=== PATIENT | female | born 1980 | race Caucasian/White ===

== ENCOUNTER 2022-08-02 03:35 | Emergency (ER) | payer OTHER, SELFPAY ==
--- NOTE | ~2022-08-02 | XR_ITS ---
EXAMINATION: XR chest 1V portable DATE: 08/02/2022 04:38 INDICATION: Chest pain and tightness. Cough. TECHNIQUE: frontal view of the chest was obtained. COMPARISON: None FINDINGS: A few calcified nodules in the bilateral lower lung zones. There are also symmetric nipple shadows pr ojecting over the bilateral anterior sixth ribs. Linear discoid atelectasis/scarring at the left lung base. No pulmonary edema, pleural effusion or pneumothorax. The cardiomediastinal silhouette is norm al. Visualized bones and soft tissues are unremarkable. IMPRESSION: 1. No acute cardiopulmonary disease. Reviewed, dictated and finalized at location A. ESSOR OF LITERATURE
--- NOTE | ~2022-08-02 | CT_ITS ---
EXAMINATION: CT abdomen pelvis wo con DATE: 08/02/2022 05:42 INDICATION: Right flank pain. Gross hematuria. Difficult painful urination. TECHNIQUE: Computed tomography (CT) of the abdomen and pelvis was performed without intravenous contr ast. Automated exposure control and iterative reconstruction technique were employed. The dose-length product was 170.77 mGy-cm. COMPARISON: None FINDINGS: A few calcified pulmonary nodules and a few splenic calcifications consistent with old granulomatous disease. Mild discoid atelectasis in the bilateral lower lobes. Heart size is normal. No pericardial or pleural effusion. Liver, gallbladder, pancreas and bilateral adrenal glands are normal. Left kidne y and ureter are normal with no left-sided urolithiasis. 2 mm nonobstructing stone at a lower pole ca lyx of the right kidney. No right-sided hydronephrosis. The right ureter is also not dilated and diff icult to definitively distinguished. There are 3 small calcifications in the right hemipelvis, the la rgest measuring 2.5 mm which are near but not directly along the expected course of the right ureter and would favor phleboliths over distal ureteral stones. Bladder is normal. The uterus is not identif ied and has likely been surgically resected. Bowels including the appendix are normal. No free intrap eritoneal gas or fluid. No pathologically enlarged abdominal or pelvic lymphadenopathy. Severe spondy losis at L5-S1. Otherwise mild spondylosis in the more cephalad lumbar and lower thoracic spine. IMPRESSION: 1. 2 mm right renal stone with 3 additional small calcification at the right hemipelvis which based o n position or more likely to represent phleboliths in distal ureteral stones or the right ureter is u nable to be definitively identified. No hydronephrosis. Reviewed, dictated and finalized at location A. ENT RELATIONS LIAISON IMPRESSION: 1. 2 mm right renal stone with 3 additional small calcification at the right he mipelvis which based on position or more likely to represent phleboliths in dis mallory ureteral stones or the right ureter is unable to be definitively identified . No hydronephrosis.
[2022-08-02 03:35] VITALS: BP 117/89; PULSE 110; RESP 24; TEMP 37; O2SAT 98
--- NOTE | 2022-08-02 03:43 | ED.BACK ---
HPI - Back Pain/Injury General Chief Complaint: Back Pain/Injury Stated Complaint: chest pain, kidney pain Time Seen by Provider: 08/02/22 03:42 Source: patient Mode of arrival: ambulatory History of Present Illness HPI Narrative: 41-year-old female status post hysterectomy presents to the ER with -- right flank pain radiating to the back. -- anterior chest pain without any radiation. -- She had an upper respiratory infection 5 days ago which resolved around 2 days ago. -- Nausea with multiple episodes of vomiting. the patient has been hyperventilating and rocking back and forth with pain MD elicited complaint: back pain Onset (ago): day(s) ( Chest pain and flank pain started yesterday) Timing: constant Similar Symptoms Previously: No Quality: aching Location: right flank Exacerbating factors: none Relieving factors: none Related Data Home Medications Medication Instructions Recorded Confirmed fluoxetine 40 mg capsule 40 mg PO DAILY 08/02/22 08/02/22 gabapentin 600 mg tablet 600 mg PO BID 08/02/22 08/02/22 Allergies Allergy/AdvReac Type Severity Reaction Status Date / Time No Known Allergies Allergy Verified 08/02/22 03:39 Review of Systems Review of Systems: All systems reviewed & are unremarkable except as noted in HPI and below Constitutional: Constitutional: Reports as per HPI and Reports no additional constitutional complaints Eyes: Eyes: Reports as per HPI and Reports no additional eye complaints ENT: Reports system reviewed and no additional complaints, except as documented and Reports as per HPI Cardiovascular: Cardiovascular: Reports as per HPI, Reports no additional cardiovascular complaints and Reports chest pain Respiratory: Respiratory: Reports as per HPI and Reports no additional respiratory complaints Gastrointestinal: Gastrointestinal: Reports as per HPI and Reports no additional gastrointestinal complaints Genitourinary: Genitourinary: Reports no additional female genitourinary complaints, Reports as per HPI and Reports flank pain Musculoskeletal: Musculoskeletal: Reports no additional musculoskeletal complaints, Reports as per HPI and Reports back pain Integumentary/Breasts: Skin/Breast: Reports system reviewed and no additional complaints, except as docu and Reports as per HPI Neurologic: Reports system reviewed and no additional complaints, except as documented and Reports as per HPI Psychiatric: Psychiatric: Reports no additional psychiatric complaints and Reports as per HPI Endocrine: Endocrine: Reports no additional endocrine complaints and Reports as per HPI Hematologic/Lymphatic: Hematologic/Lymphatic: Reports no additional hematologic/lymphatic complaints and Reports as per HPI Allergic/Immunologic: Allergic/Immunologic: Reports no additional allergic/immunologic complaints and Reports as per HPI [facility] Surgical History Surgical History (Updated 08/02/22 @ 03:57 by Farhad Marmolejo MD) H/O: hysterectomy Exam Const: General: ill appearing Nutritional Appearance: thin Limitations: no limitations HENMT: Head: normal to inspection Ears: external ears normal Face/Nose/Sinus: Normal external nose present Face and sinus: normal facial exam Mouth: Yes Normal oral and palatal mucosa present Throat: posterior oropharynx normal Eyes: Conjunctivae: conjunctivae normal Pupils: Equal, round and reactive pupils present Direct Ophthalmoscopy: no photophobia Neck: Neck: normal visual inspection, no lymphadenopathy and no meningeal signs Chest: Chest palpation & inspection: normal inspection of the chest Resp: Effort & Inspection: normal respiratory effort Auscultation: clear to auscultation bilaterally Cardio: Rate: regular rate Rhythm: regular rhythm GI: GI Palp: Yes Soft to palpation Auscultation: normal bowel sounds Other: right flank tenderness without any rigidity /rebound : General: Yes CVA tenderness Back/Spine/Pelvis: Back: CVA tenderness Skin:
--- NOTE | 2022-08-02 03:51 | ECG_ITS ---
Measurements Intervals [place] Rate: 96 P: 70 TN: 133 QRS: 82 QRSD: 80 T: 64 QT: 317 QTc: 401 Interpretive Statements SINUS RHYTHM BASELINE ARTIFACT- I, II, III NORMAL ECG NO PREVIOUS ECG AVAILABLE FOR COMPARISON Electronically Signed On 08-02-2022 6:55:00 [employer] SELECT[employer] by Linus Waite D.O.
[2022-08-02 04:06] LABS: Basophils Absolute Auto 0.02 K/mm3 (0.00-0.10); Basophils Percent Auto 0.1 % (0.0-1.0); Eosinophils Absolute Auto 0.01 K/mm3 (0.02-0.50); Eosinophils Percent Auto 0.1 % (1.0-6.0); Hemoglobin 13.8 g/dL (12.0-15.0); Immature Granulocyte Absolute 0.05 K/mm3 (0.00-0.00); Immature Granulocyte Percent A 0.4 % (0.0-0.0); Lymphocytes Absolute Auto 0.92 K/mm3 (1.10-4.50); Lymphocytes Percent Auto 6.5 % (18.0-42.0); Mean Corpuscular HGB Conc 33.7 g/dL (32.0-36.0); Mean Corpuscular Hemoglobin 30.7 pg (27.0-31.0); Mean Corpuscular Volume 91.1 fL (78.0-102.0); Mean Platelet Volume 9.7 fl (9.2-11.8); Monocytes Absolute Auto 0.79 K/mm3 (0.10-0.90); Monocytes Percent Auto 5.6 % (2.0-11.0); Neutrophils Absolute Auto 12.4 K/mm3 (1.7-7.2); Neutrophils Percent Auto 87.3 % (50.0-70.0); Platelet Count Result 200 K/mm3 (150-420); Red Cell Distribution Width 11.8 % (11.6-14.4); White Blood Count 14.2 K/mm3 (4.8-10.8)
[2022-08-02] MEDS: MORPHINE SULFATE (*CRX) 2 MG/ML INJ IV PUSH (04:16)
[2022-08-02] MEDS: ONDANSETRON INJ 4 MG/2 ML VIAL IV PUSH (04:16)
[2022-08-02] MEDS: LACTATED RINGERS 1,000 ML 999 ML IV CONT ×2 (04:17→05:20)
[2022-08-02 04:18] LABS: Appearance Urine Clear (Clear); Bilirubin Urine Negative (Negative); Blood Urine 1+ (Negative); Glucose Urine UA Negative (Negative); Ketones Urine 1+ (Negative); Leukocyte Esterase Ur 3+ (Negative); Nitrate Urine Positive (Negative); Protein Urine 2+ (Negative)
[2022-08-02 04:20] LABS: D Dimer 0.37 mg/L (0.19-0.50); INR 0.9; Prothrombin Time 10.4 Seconds (9.50-12.10)
[2022-08-02 04:24] LABS: Add Urine Microscopic? YES; Color Urine Light Yellow (Yellow)
[2022-08-02 04:24] LABS: Alanine Aminotransferase 11 U/L (14-59); Albumin Level 3.4 g/dL (3.4-5.0); Alkaline Phosphatase 86 U/L (46-116); Anion Gap 11 mmol/L (8-16); Aspartate Amino Transferase < 10 U/L (15-37); Bilirubin,Total 0.4 mg/dL (0.00-1.00); Blood Urea Nitrogen 10 mg/dL (7-18); Calcium 8.7 mg/dL (8.5-10.1); Carbon Dioxide 23 mmol/L (21-32); Chloride 101 mmol/L (98-108); Estimated Glomerular Filt Rate > 60; Glucose 187 mg/dL (70-99); Lipase 27 U/L (73-393); Osmolality Calculated 284 mOsm/kg (285-295); Potassium 3.5 mmol/L (3.5-5.1); Sodium 135 mmol/L (136-145); Total Protein 7.1 g/dL (6.4-8.2)
[2022-08-02 04:25] LABS: Bacteria Urine 3+ /hpf; Squamous Epithelial Cell Urine Few /hpf (Few); WBC Urine >75 /hpf (0-3)
[2022-08-02 04:25] LABS: Troponin I < 4.0 ng/L (0.00-60.4)
[2022-08-02 04:26] LABS: Lactic Acid Reflex 1.7 mmol/L (0.4-2.0)
[2022-08-02 04:53] LABS: SARS-CoV-2 RNA PCR Positive (Negative)
[2022-08-02] MEDS: HYDROmorphone HCL INJ (*CRX) 2 MG/ML VIAL 0.5 MG IV PUSH (05:19)
[2022-08-02 05:35] VITALS: BP 123/83; PULSE 90; RESP 18; O2SAT 98
[2022-08-02] MEDS: levoFLOXacin 500 MG/D5W 100 ML 500 MG/100 ML BAG 100 MG IVPB (05:42)
--- NOTE | 2022-08-02 06:15 | PC.NURSE ---
Pt is sleeping and resting comfortably, IVF infusing per order, awaiting CT results. Call العلي at pt side.
[2022-08-02 07:09] VITALS: BP 128/74; PULSE 95; RESP 18; TEMP 37.2; O2SAT 98
== END 2022-08-02 07:15 | disposition home or self-care (01) ==
PROVIDERS: Emergency Provider Internal Medicine Critical Care Medicine; PCP Family Medicine
DX: N39.0 Urinary tract infection, site not specified (principal); U07.1 COVID-19; R10.9 Unspecified abdominal pain; R73.9 Hyperglycemia, unspecified; R07.9 Chest pain, unspecified
CPT/HCPCS: 36415; 71045; 74176; 80053; 81001; 83605; 83690; 84484; 85025; 85380; 85610; 93005; 96361; 96365; 96375; 99284; J1170; J1956; J2270; J2405; J7120; U0003; U0005

== ENCOUNTER 2022-08-04 17:41 | Observation (INO) | payer OTHER, SELFPAY ==
--- NOTE | ~2022-08-04 | CT_ITS ---
EXAMINATION: CT abdomen pelvis w con DATE: 08/04/2022 20:19 INDICATION: Right upper quadrant abdominal pain. TECHNIQUE: Computed tomography (CT) of the abdomen and pelvis was performed with 100 mL Omnipaque 350 intravenous contrast. Automated exposure control and iterative reconstruction technique were employe d. The dose-length product was 236.08 mGy-cm. COMPARISON: CT abdomen and pelvis 08/02/2022 FINDINGS: The visualized portions of the lung bases demonstrate mild atelectasis. Calcified right mo g nodules are consistent with old granulomatous disease. No pleural effusion. The heart size is ever l. No pericardial effusion. The liver is normal. The gallbladder is distended. Calcifications in the spleen are consistent with old granulomatous disease. The pancreas and adrenal glands are normal. The re are bilateral striated nephrograms, consistent with pyelonephritis. There is an 8 mm cyst in left kidney. There are no dilated loops of bowel. The appendix is normal. There are no pathologically enla rged lymph nodes. There is no free intraperitoneal fluid. There is severe lower lumbar spondylosis. IMPRESSION: 1. Bilateral pyelonephritis. 2. Gallbladder distention, most likely secondary to fasting. Correlate with physical exam to exclude acute cholecystitis. Reviewed, dictated and finalized at location A. LITION EXPERT IMPRESSION: 1. Bilateral pyelonephritis. 2. Gallbladder distention, most likely secondary to fasting. Correlate with phy sical exam to exclude acute cholecystitis.
--- NOTE | ~2022-08-04 | US_ITS ---
EXAMINATION: US abdomen complete DATE: 08/05/2022 09:18 INDICATION: Abdominal pain TECHNIQUE: Multiple grayscale and Doppler ultrasound images of the abdomen were obtained. COMPARISON: CT from yesterday FINDINGS: Bowel gas obscures visualization of the pancreas. The visualized portions of the pancreas a re unremarkable. The liver is normal with normal echogenicity and echotexture. No surface nodularity. Normal hepatopetal flow in the main portal vein. The gallbladder is distended and contains sludge. T here is no gallbladder wall thickening or pericholecystic fluid. The normal common bile duct measures 5 mm. Sonographic Nance sign is positive. The visualized portions of the aorta and inferior vena ca va are normal. The right kidney measures 13.1 x 4.2 x 3.8 cm. The left kidney measures 11.5 x 5.4 x 4.1 cm. The kidn eys demonstrate normal parenchymal echogenicity. There is no hydronephrosis. The spleen is normal in appearance and measures 13.0 cm. IMPRESSION: 1. Distended gallbladder containing sludge and positive sonographic Nance sign without gallbladder w all thickening or pericholecystic fluid. Findings are equivocal for acute cholecystitis. Consider nuc lear hepatobiliary scan. Reviewed, dictated and finalized at location B. GRATED LOGISTICS PROGRAMS DIRECTOR IMPRESSION: 1. Distended gallbladder containing sludge and positive sonographic Nance sign without gallbladder wall thickening or pericholecystic fluid. Findings are equ ivocal for acute cholecystitis. Consider nuclear hepatobiliary scan.
[2022-08-04 17:44] VITALS: BP 147/96; PULSE 97; RESP 18; TEMP 36.5; O2SAT 99
[2022-08-04 17:45] VITALS: BP 147/96; PULSE 97; RESP 18; TEMP 36.5; O2SAT 99
--- NOTE | 2022-08-04 18:15 | ECG_ITS ---
Measurements Intervals [place] Rate: 84 P: 38 UT: 122 QRS: 68 QRSD: 84 T: 39 QT: 331 QTc: 391 Interpretive Statements SINUS RHYTHM BORDERLINE T WAVE ABNORMALITY- ANTERIOR LEADS BASELINE ARTIFACT- I, II, III, AVR, AVF, V1 BORDERLINE ECG COMPARED TO ECG 08/02/2022 03:58:07 NO SIGNIFICANT CHANGES Electronically Signed On 08-04-2022 21:01:15 LATH HAND by Linus Waite D.O.
[2022-08-04 18:46] VITALS: BP 140/90; PULSE 80; RESP 18; O2SAT 97
--- NOTE | 2022-08-04 18:50 | PC.NURSE ---
report to malka ivan. no questions or concerns.
[2022-08-04 18:56] LABS: Basophils Absolute Auto 0.02 K/mm3 (0.00-0.10); Basophils Percent Auto 0.2 % (0.0-1.0); Eosinophils Absolute Auto 0.08 K/mm3 (0.02-0.50); Hematocrit 38.8 % (35.0-49.0); Hemoglobin 12.8 g/dL (12.0-15.0); Immature Granulocyte Absolute 0.04 K/mm3 (0.00-0.00); Immature Granulocyte Percent A 0.5 % (0.0-0.0); Lymphocytes Absolute Auto 1.89 K/mm3 (1.10-4.50); Lymphocytes Percent Auto 22.8 % (18.0-42.0); Mean Corpuscular Hemoglobin 30.8 pg (27.0-31.0); Mean Corpuscular Volume 93.5 fL (78.0-102.0); Monocytes Absolute Auto 0.59 K/mm3 (0.10-0.90); Monocytes Percent Auto 7.1 % (2.0-11.0); Neutrophils Absolute Auto 5.7 K/mm3 (1.7-7.2); Neutrophils Percent Auto 68.4 % (50.0-70.0); Platelet Count Result 250 K/mm3 (150-420); Red Blood Count 4.15 M/mm3 (4.20-5.40); Red Cell Distribution Width 11.8 % (11.6-14.4); White Blood Count 8.3 K/mm3 (4.8-10.8)
[2022-08-04] MEDS: SODIUM CHLORIDE 0.9% IV 1,000 ML 999 ML IV CONT (18:57)
[2022-08-04] MEDS: ONDANSETRON INJ 4 MG/2 ML VIAL IV PUSH (18:57)
[2022-08-04] MEDS: MORPHINE SULFATE (*CRX) 4 MG/ML INJ IV PUSH (18:58)
[2022-08-04 19:15] LABS: Partial Thromboplastin Time 31.5 SEC (23.90-30.70)
[2022-08-04 19:20] VITALS: BP 138/88; PULSE 82; RESP 18; O2SAT 97
[2022-08-04 19:23] LABS: Alanine Aminotransferase 20 U/L (14-59); Albumin Level 3.1 g/dL (3.4-5.0); Alkaline Phosphatase 90 U/L (46-116); Anion Gap 9 mmol/L (8-16); Aspartate Amino Transferase < 10 U/L (15-37); Bilirubin,Total 0.3 mg/dL (0.00-1.00); Blood Urea Nitrogen 10 mg/dL (7-18); Carbon Dioxide 26 mmol/L (21-32); Chloride 105 mmol/L (98-108); Estimated CRCL calculation 72 ml/min; Estimated Glomerular Filt Rate > 60; Glucose 115 mg/dL (70-99); Lipase 18 U/L (73-393); Osmolality Calculated 290 mOsm/kg (285-295); Potassium 3.6 mmol/L (3.5-5.1); Sodium 140 mmol/L (136-145); Total Protein 7.3 g/dL (6.4-8.2); Troponin I < 4.0 ng/L (0.00-60.4)
[2022-08-04 19:25] LABS: Lactic Acid Reflex 0.8 mmol/L (0.4-2.0)
[2022-08-04] MEDS: HYDROmorphone HCL INJ (*CRX) 2 MG/ML VIAL 0.5 MG IV PUSH ×2 (19:38→21:12)
--- NOTE | 2022-08-04 20:54 | ED.ABDPAIN ---
HPI - Abdominal Pain General Chief Complaint: Abdominal Pain Stated Complaint: pain in abdomin area Time Seen by Provider: 08/04/22 17:59 Source: patient Mode of arrival: ambulatory Limitations: no limitations History of Present Illness HPI narrative: this is a 41-year-old female with no significant past medical history was seen in the emergency department 2 days ago for abdominal pain diagnosed with pyelonephritis and was sent home with antibiotics. The patient presents again 2 days later with worsening abdominal pain and it is generalized localizing to her bilateral flanks and right upper quadrant. Patient has been having some nausea and vomiting with some currently no dysuria no hematuria, patient was diagnosed with COVID currently she is not short of breath she is satting 97% on room air. There is no fever or chills no chest pain no diarrhea or constipation. MD elicited complaint: abdominal pain Onset (ago): day(s) Pain Consistency: constant Location: diffuse Severity: moderate Pain scale (0-10): 8 Quality: aching Radiation: RUQ and bilateral flank Migration to: no migration Exacerbating factors: nothing Relieving factors: nothing Associated symptoms: nausea and vomiting Related Data Home Medications Medication Instructions Recorded Confirmed fluoxetine 40 mg capsule 40 mg PO DAILY 08/02/22 08/04/22 gabapentin 600 mg tablet 600 mg PO BID 08/02/22 08/04/22 Allergies Allergy/AdvReac Type Severity Reaction Status Date / Time No Known Allergies Allergy Verified 08/02/22 03:39 [facility] Surgical History Surgical History H/O: hysterectomy Exam Const: General: healthy appearing Limitations: no limitations HENMT: Head: normal to inspection Face/Nose/Sinus: Normal external nose present Face and sinus: normal facial exam Mouth: Yes Normal oral and palatal mucosa present Eyes: Conjunctivae: conjunctivae normal Pupils: Equal, round and reactive pupils present Neck: Neck: normal visual inspection Chest: Chest palpation & inspection: normal inspection of the chest Resp: Effort & Inspection: normal respiratory effort Auscultation: clear to auscultation bilaterally Cardio: Rate: regular rate Rhythm: regular rhythm GI: GI Palp: Yes Soft to palpation Auscultation: normal bowel sounds : General: Yes bladder normal to palpation and Yes CVA tenderness Urinary Catheter: Urinary Catheter: patent and draining Back/Spine/Pelvis: Back: CVA tenderness Skin: General skin exam: normal color Rashes: no rashes Wounds: no wounds Neuro: General: patient oriented x3 and moves all extremities Extrem: General: normal to inspection Psych: Mental Status: mental status grossly normal Affect: normal affect Course Course Emergency Course: Patient had a CT scan which shows evidence of bilateral pyelonephritis labs reviewed with patient there is currently no white blood cell elevation currently is 8.3 patient has a history of COVID diagnosed 2 to 3 days ago, patient received IV fluids and morphine and Dilaudid for pain control along with Zofran. Patient received a dose of IV ceftriaxone. Spoke with hospitalist and will admit the patient for further evaluation. CT scan also shows possible evidence of acute cholecystitis and recommend ultrasound to be done as an inpatient. Vital Signs Vital signs: Vital Signs Temperature 36.5 C 08/04/22 17:44 Pulse Rate 97 08/04/22 17:44 Respiratory Rate 18 08/04/22 17:44 Blood Pressure 147/96 H 08/04/22 17:44 Pulse Oximetry 99 08/04/22 17:44 Oxygen Delivery Room Air 08/04/22 17:44 Temperature 36.5 C 08/04/22 17:45 Pulse Rate 82 08/04/22 19:20 Respiratory Rate 18 08/04/22 19:20 Blood Pressure 138/88 08/04/22 19:20 Pulse Oximetry 97 08/04/22 19:20 Oxygen Delivery Room Air 08/04/22 19:20 MDM - Abdominal Pain Lab Data Result diagrams: 08/04/22 18:26 08/04/22
[2022-08-04 21:03] LABS: Add Urine Microscopic? NO; Appearance Urine Clear (Clear); Bilirubin Urine Negative (Negative); Blood Urine Negative (Negative); Color Urine Yellow (Yellow); Glucose Urine UA Negative (Negative); Ketones Urine Negative (Negative); Leukocyte Esterase Ur Negative LEU/UL (Negative); Nitrate Urine Negative (Negative); Protein Urine Negative (Negative); Specific Grav Ur <= 1.005 (1.010-1.020); pH Urine 6.5 (5.0-8.0)
[2022-08-04 21:07] LABS: Pregnancy On Board Control Positive; Urine Pregnancy Test Negative
[2022-08-04 21:30] VITALS: BMI 20.7
--- NOTE | 2022-08-04 21:30 | ADMGEN ---
This patient, Jayla Chang, was admitted to 2nd Floor Room 204-1. Patient oriented to hospital policies and general routines including ID bracelet, bed and alarms, visiting hours, pain management, procedures, bathroom and other care routines, personal items, smoking policy, room service/diet, and visiting hours. Information on how to activate the Rapid Response Team has been discussed. Patient are encouraged to report perceived risks to care and to ask questions if they do not understand what they are told or what they should do.
[2022-08-04 21:35] VITALS: BP 138/90; PULSE 80; RESP 18; TEMP 37.2; O2SAT 96
[2022-08-04] MEDS: SODIUM CHLORIDE 0.9% IV 1,000 ML 100 ML IV CONT (21:43)
[2022-08-04] MEDS: HYDROcodone/acetaminophen (*CRX) 5-325 MG TABLET 1 TAB PO (22:17)
[2022-08-04 23:59] VITALS: BP 139/87; PULSE 88; RESP 18; TEMP 36.8; O2SAT 98
[2022-08-05] MEDS: MORPHINE SULFATE (*CRX) 2 MG/ML INJ IV PUSH ×3 (02:21→14:05)
[2022-08-05 05:39] LABS: Basophils Absolute Auto 0.02 K/mm3 (0.00-0.10); Basophils Percent Auto 0.3 % (0.0-1.0); Eosinophils Absolute Auto 0.12 K/mm3 (0.02-0.50); Eosinophils Percent Auto 1.6 % (1.0-6.0); Hematocrit 34.9 % (35.0-49.0); Hemoglobin 11.2 g/dL (12.0-15.0); Immature Granulocyte Absolute 0.05 K/mm3 (0.00-0.00); Immature Granulocyte Percent A 0.7 % (0.0-0.0); Lymphocytes Absolute Auto 2.35 K/mm3 (1.10-4.50); Lymphocytes Percent Auto 32.1 % (18.0-42.0); Mean Corpuscular HGB Conc 32.1 g/dL (32.0-36.0); Mean Corpuscular Hemoglobin 30.9 pg (27.0-31.0); Mean Corpuscular Volume 96.4 fL (78.0-102.0); Mean Platelet Volume 9.5 fl (9.2-11.8); Monocytes Absolute Auto 0.66 K/mm3 (0.10-0.90); Neutrophils Absolute Auto 4.1 K/mm3 (1.7-7.2); Neutrophils Percent Auto 56.3 % (50.0-70.0); Platelet Count Result 218 K/mm3 (150-420); Red Blood Count 3.62 M/mm3 (4.20-5.40); Red Cell Distribution Width 11.9 % (11.6-14.4); White Blood Count 7.3 K/mm3 (4.8-10.8)
[2022-08-05 05:48] LABS: Anion Gap 7 mmol/L (8-16); Blood Urea Nitrogen 7 mg/dL (7-18); Calcium 7.9 mg/dL (8.5-10.1); Carbon Dioxide 26 mmol/L (21-32); Chloride 109 mmol/L (98-108); Estimated CRCL calculation 80 ml/min; Estimated Glomerular Filt Rate > 60; Glucose 101 mg/dL (70-99); Osmolality Calculated 292 mOsm/kg (285-295); Potassium 3.9 mmol/L (3.5-5.1); Sodium 142 mmol/L (136-145)
[2022-08-05] MEDS: HYDROcodone/acetaminophen (*CRX) 5-325 MG TABLET 1 TAB PO ×3 (05:56→18:05)
[2022-08-05 08:00] VITALS: BP 119/70; PULSE 84; RESP 16; TEMP 36.8; O2SAT 98
[2022-08-05] MEDS: KETOROLAC 30 MG/ML VIAL (*BKC) IV PUSH (09:06)
[2022-08-05] MEDS: FLUoxetine HCL 20 MG CAPSULE 40 MG PO (09:07)
[2022-08-05] MEDS: GABAPENTIN 300 MG CAPSULE 600 MG PO ×2 (09:08→17:54)
[2022-08-05] MEDS: PHENAZOPYRIDINE HCL 100 MG TABLET 200 MG PO ×2 (11:58→17:55)
--- NOTE | 2022-08-05 13:21 | PM.IMHP ---
H&P: HPI History of Present Illness Date/Time: 08/05/22 13:21 Chief Complaint: Abdominal pain Narrative: This is a 41-year-old that presents to the emergency room complaining of severe abdominal pain that was sudden onset. Patient states that the pain was so severe she can not tolerated she is currently on antibiotics for urinary tract infection. Patient states that she had nausea and vomiting. Patient has a past medical history of gallbladder issues and urinary tract infection. Patient was seen by her primary care provider the medication is not working she was also seen in the emergency room [address] scan shows bilateral pyelonephritis and pains not being controlled this time patient was being admitted for IV hydration and pain management with IV antibiotics. Patient has remained afebrile still having some nocturia no vomiting awaiting ultrasound. Review of Systems Review of Systems: abdominal pain , burning with urination , nausea All systems reviewed & are unremarkable except as noted in HPI and below PMFSH Surgical History Surgical History H/O: hysterectomy Social History Social History Smoking packs per day: 0.5 Smoking cigarettes per day: 10.0 Years smoked: 30 Smoking pack-years: 15.00 Smoking status: Current every day smoker Tobacco type: cigarettes Second hand tobacco smoke exposure: Yes Alcohol intake: current Drinks per week: 1 Substance use: current Substance use type: marijuana Last use: 07/31/22 Lack of Transportation: No Lack of Food: Never True Current Housing: I Have Housing Concerned About Future Housing: No Difficulty Paying Gas/Electric Bills: No Difficulty Paying for Meds: No Currently Unemployed: No Education: Trade/Vocational Certificate Difficulty w/ Childcare or Family Care: No Spiritual care concerns: No Comments At time as signature, I have reviewed and agree with nursing past medical, social, surgical and family history. Please see nursing chart for further information. There is no relevant family history pertinent to the presenting complaint. Meds Home Medications and Allergies Home Medications Medication Instructions Recorded Confirmed Type fluoxetine 40 mg capsule 40 mg PO DAILY 08/02/22 08/04/22 History gabapentin 600 mg tablet 600 mg PO BID 08/02/22 08/04/22 History levofloxacin 500 mg tablet 500 mg PO DAILY 5 days #5 tabs 08/02/22 08/04/22 Rx ciprofloxacin HCl 500 mg tablet 500 mg PO Q12H #10 tabs 08/06/22 Rx (Cipro) lactobacillus combination no.4 3 3,000 mmu cells PO DAILY #30 caps 08/06/22 Rx billion cell capsule (Probiotic) ondansetron 4 mg disintegrating 4 mg PO Q8H PRN nausea and 08/06/22 Rx tablet vomiting #14 tabs phenazopyridine 100 mg tablet 200 mg PO TIDWM 2 days #8 tabs 08/06/22 Rx tramadol 50 mg tablet 50 mg PO Q6H PRN pain #14 tabs 08/06/22 Rx Allergies Allergy/AdvReac Type Severity Reaction Status Date / Time No Known Allergies Allergy Verified 08/02/22 03:39 Vital Signs Vital Signs - 24 hr 08/04/22 17:44 08/04/22 17:45 08/04/22 18:46 Temperature 97.7 F 97.7 F Pulse Rate 97 97 80 Respiratory Rate 18 18 18 Blood Pressure 147/96 H 147/96 H 140/90 Pulse Oximetry 99 99 97 Oxygen Delivery Room Air Room Air Room Air 08/04/22 19:20 08/04/22 21:35 08/04/22 23:59 Temperature 99 F 98.3 F Pulse Rate 82 80 88 Respiratory Rate 18 18 18 Blood Pressure 138/88 138/90 139/87 Pulse Oximetry 97 96 98 Oxygen Delivery Room Air Room Air Room Air 08/05/22 08:00 Temperature 98.2 F Pulse Rate 84 Respiratory Rate 16 Blood Pressure 119/70 Pulse Oximetry 98 Oxygen Delivery Room Air Exam Narrative: GENERAL:Well-appearing, well-nourished, and in no acute distress. HEAD:Normocephalic, atraumatic. EYES: PERRLA and EOMI. ENT: Nares clear, no rhinorrhea or epistaxis. Mucous me
[2022-08-05] MEDS: ONDANSETRON INJ 4 MG/2 ML VIAL IV PUSH (14:23)
[2022-08-05 16:35] VITALS: BP 122/78; PULSE 84; RESP 16; TEMP 36.8; O2SAT 96
--- NOTE | 2022-08-05 18:17 | PC.NURSE ---
Ludy notified that patient is C/O nausea despite having had Zofran. New orders received.
[2022-08-05] MEDS: PROMETHAZINE HCL 25 MG/ML AMPUL 12.5 MG IV PUSH (18:25)
[2022-08-06] VITALS: BP 128/80; PULSE 82; RESP 14; TEMP 36.5; O2SAT 98
[2022-08-06] MEDS: HYDROcodone/acetaminophen (*CRX) 5-325 MG TABLET 1 TAB PO ×2 (05:16→09:20)
[2022-08-06 05:20] LABS: Basophils Absolute Auto 0.02 K/mm3 (0.00-0.10); Basophils Percent Auto 0.3 % (0.0-1.0); Eosinophils Absolute Auto 0.15 K/mm3 (0.02-0.50); Eosinophils Percent Auto 2.2 % (1.0-6.0); Hematocrit 33.4 % (35.0-49.0); Hemoglobin 10.7 g/dL (12.0-15.0); Immature Granulocyte Absolute 0.04 K/mm3 (0.00-0.00); Immature Granulocyte Percent A 0.6 % (0.0-0.0); Lymphocytes Absolute Auto 2.15 K/mm3 (1.10-4.50); Lymphocytes Percent Auto 31.9 % (18.0-42.0); Mean Corpuscular Hemoglobin 30.6 pg (27.0-31.0); Mean Corpuscular Volume 95.4 fL (78.0-102.0); Mean Platelet Volume 9.8 fl (9.2-11.8); Monocytes Absolute Auto 0.71 K/mm3 (0.10-0.90); Monocytes Percent Auto 10.5 % (2.0-11.0); Neutrophils Absolute Auto 3.7 K/mm3 (1.7-7.2); Neutrophils Percent Auto 54.5 % (50.0-70.0); Platelet Count Result 276 K/mm3 (150-420); Red Cell Distribution Width 11.9 % (11.6-14.4); White Blood Count 6.7 K/mm3 (4.8-10.8)
[2022-08-06 05:35] LABS: Anion Gap 9 mmol/L (8-16); Blood Urea Nitrogen 6 mg/dL (7-18); Calcium 8.3 mg/dL (8.5-10.1); Carbon Dioxide 24 mmol/L (21-32); Chloride 108 mmol/L (98-108); Estimated CRCL calculation 81 ml/min; Estimated Glomerular Filt Rate > 60; Glucose 93 mg/dL (70-99); Osmolality Calculated 289 mOsm/kg (285-295); Potassium 3.9 mmol/L (3.5-5.1); Sodium 141 mmol/L (136-145)
[2022-08-06] MEDS: FLUoxetine HCL 20 MG CAPSULE 40 MG PO (07:59)
[2022-08-06] MEDS: GABAPENTIN 300 MG CAPSULE 600 MG PO (07:59)
[2022-08-06] MEDS: PHENAZOPYRIDINE HCL 100 MG TABLET 200 MG PO (07:59)
[2022-08-06 08:00] VITALS: BP 117/67; PULSE 72; RESP 16; TEMP 36.6; O2SAT 98
--- NOTE | 2022-08-06 08:34 | PM.DS ---
DS: Admitting Diagnosis Discharge Date 08/06/2022 Admitting Diagnosis Pylenonephritis DS: Discharge Diagnosis Discharge Diagnosis (1) COVID-19: Code(s): U07.1 - COVID-19 Status: Acute Assessment and Plan: Asymptomatic (2) Cholecystitis: Code(s): K81.9 - Cholecystitis, unspecified Status: Acute Assessment and Plan: Pain resolving (3) Pyelonephritis: Code(s): N12 - Tubulo-interstitial nephritis, not specified as acute or chronic Status: Acute DS: Summary Hospital Course Reason for hospitalization: Pancreatitis cholelithiasis Hospital Course: this is a 41-year-old comes in complaining of severe abdominal pain to the emergency room CT scan showed acute pancreatitis patient has not had any symptoms like this before. Patient has remained NPO receiving IV fluids prior to coming in she was on antibiotics for urinary tract infection. Patient has remained afebrile we continue with the IV antibiotics written discharge she was able to eat and drink and take oral food and medication without any difficulties. Patient ultrasound show possible cholelithiasis without any obstructions call placed to a Dr. Dent surgeon GI who was willing to see patient next week patient needs to call the office and they will schedule her own appointment patient now is understanding. She will be discharged with oral antibiotics pain medication she will receive a phone number to call so she can schedule herself an appointment patient's current vitals are 117/67, 72, 16, 98.0, and 98% on room air patient's potassium is 3.9, sodium is141, BUN is 6, creatinine 0.73, WBCs 6.7, hemoglobin is 10.7, hematocrit is 33,. no further nausea vomiting or diarrhea Time Spent with Patient Time attestation: Total time spent providing and/or coordinating discharge services: Exam Narrative: GENERAL:Well-appearing, well-nourished, and in no acute distress. HEAD:Normocephalic, atraumatic. EYES: PERRLA and EOMI. ENT: Nares clear, no rhinorrhea or epistaxis. Mucous membranes moist. NECK: Supple. CHEST: Clear to auscultation. No respiratory distress. HEART: Regular rate and rhythm. No murmur heard. Normal peripheral pulses. ABDOMEN: Soft, nontender, nondistended, normal active bowel sounds. EXTREMITIES: Normal range of motion. No edema. SKIN: Warm, dry, no rash. NEURO: No focal deficits. Alert and oriented x3. DS: Data Data Completed and Pending Labs on day of discharge: Labs from last 24 hours 08/06/22 08/06/22 04:58 04:58 WBC 6.7 RBC 3.50 L Hgb 10.7 L Hct 33.4 L MCV 95.4 MCH 30.6 MCHC 32.0 RDW 11.9 Plt Count 276 MPV 9.8 Immature Gran % (Auto) 0.6 H Neut % (Auto) 54.5 Lymph % (Auto) 31.9 [place] % (Auto) 10.5 Eos % (Auto) 2.2 Baso % (Auto) 0.3 Lymph # (Auto) 2.15 [place] # (Auto) 0.71 Eos # (Auto) 0.15 Baso # (Auto) 0.02 Abs Immat Gran (auto) 0.04 H Absolute Neuts (auto) 3.7 Absolute Nucleated RBC 0.00 Nucleated RBC % 0.0 Sodium 141 Potassium 3.9 Chloride 108 Carbon Dioxide 24 Anion Gap 9 BUN 6 L Creatinine 0.73 Estim Creat Clear Calc 81 Estimated GFR > 60 Glucose 93 Calculated Osmolality 289 Calcium 8.3 L Discharge Plan Discharge Attending physician on discharge: Greg Woodward Consulting providers: Paige López ; Linus Waite ; Rudy Muñoz V. ; Amish Carias Discharging Clinician: Paige López Anticipated Discharge Date/Time: 08/06/22 08:22 Patient Disposition: Home, Self-Care Activity: may shower, unlimited and as tolerated Diet: as tolerated and low fat Wound Care Instructions: follow printed instructions Discharge Instructions: Call Dr. King office on Monday they will schedule a appointment with you [phone] You need to make sure that you take all of your medication and drink plenty of fluids Follow up with your PCP in the next week Patient Instructions:
[2022-08-06] MEDS: MORPHINE SULFATE (*CRX) 2 MG/ML INJ IV PUSH (09:49)
--- NOTE | 2022-08-06 09:50 | PC.NURSE ---
Patient requested morphine pain medication for ride home
--- NOTE | 2022-08-06 10:12 | PC.NURSE ---
Patient given discharge instructions. IV Catheter removed intact. Reminded to call Dr. Franco for appointment. Advised pyridium is OTC and given script for tramadol. Taken to private vehicle via wheelchair
--- NOTE | 2022-08-08 10:11 | PC.NURSE ---
Pt state she received and understood her discharge instructions. Pt also states I had a very good experience. I loved everyone and they all did a great job .
== END 2022-08-06 10:10 | disposition home or self-care (01) ==
LOC: CHSED 19:43 → CHS2ND 21:07
PROVIDERS: Nurse Practitioner Family; Admitting Provider Internal Medicine; Emergency Provider Emergency Medicine; PCP Family Medicine; Visit Provider Internal Medicine
DX: N12 Tubulo-interstitial nephritis, not specified as acute or chronic (principal); K81.9 Cholecystitis, unspecified; U07.1 COVID-19; F17.210 Nicotine dependence, cigarettes, uncomplicated
CPT/HCPCS: 36415; 74177; 76700; 80048; 80053; 81003; 81025; 83605; 83690; 84484; 85025; 85610; 85730; 93005; 96361; 96365; 96374; 96375; 96376; 99285; A9270; G0378; G0379; J0696; J1170; J1885; J2270; J2405; J2550; J7030; Q9967

== ENCOUNTER 2022-08-15 07:52 | Outpatient (CLI) | payer OTHER, SELFPAY ==
--- NOTE | ~2022-08-15 | NM_ITS ---
EXAMINATION: NM hepatobiliary w pharm DATE: 08/15/2022 12:27 RADIO ARTIST INDICATION: Right upper quadrant pain. COMPARISON: None ultrasound dated 08/05/2022 TECHNIQUE: 6 mCi Tc-99m mebrofenin (Choletec) was administered intravenously. Scintigraphic images o f the abdomen were obtained for one hour. At the 1 hour time point, the patient drank 8 oz Ensure, an d imaging was continued for 60 minutes. Gallbladder ejection fraction was calculated by the technolog ist. FINDINGS: There is normal clearance of radiotracer from the blood pool. There is homogeneous tracer u ptake by the liver. Activity progresses to the bowel and gallbladder. The gallbladder ejection fract ion is 66%. Note that with this technique, normal GBEF >= 33%. IMPRESSION: 1. Normal hepatobiliary scan. Reviewed, dictated and finalized at location B. O ARTIST
== END 2022-08-15 07:53 | disposition home or self-care (01) ==
LOC: CHSIMG 07:54
PROVIDERS: PCP Family Medicine
DX: K82.9 Disease of gallbladder, unspecified (principal)
CPT/HCPCS: 78227; A9537; J2805

== ENCOUNTER 2022-08-31 08:12 | Outpatient (CLI) | payer OTHER, SELFPAY ==
[2022-08-31 08:25] LABS: Basophils Absolute Auto 0.05 K/mm3 (0.00-0.10); Basophils Percent Auto 0.8 % (0.0-1.0); Eosinophils Absolute Auto 0.26 K/mm3 (0.02-0.50); Eosinophils Percent Auto 4.3 % (1.0-6.0); Hematocrit 41.2 % (35.0-49.0); Hemoglobin 13.4 g/dL (12.0-15.0); Immature Granulocyte Absolute 0.01 K/mm3 (0.00-0.00); Immature Granulocyte Percent A 0.2 % (0.0-0.0); Lymphocytes Absolute Auto 2.42 K/mm3 (1.10-4.50); Lymphocytes Percent Auto 39.8 % (18.0-42.0); Mean Corpuscular HGB Conc 32.5 g/dL (32.0-36.0); Mean Corpuscular Hemoglobin 30.2 pg (27.0-31.0); Mean Platelet Volume 9.3 fl (9.2-11.8); Monocytes Absolute Auto 0.47 K/mm3 (0.10-0.90); Monocytes Percent Auto 7.7 % (2.0-11.0); Neutrophils Absolute Auto 2.9 K/mm3 (1.7-7.2); Neutrophils Percent Auto 47.2 % (50.0-70.0); Platelet Count Result 303 K/mm3 (150-420); Red Blood Count 4.43 M/mm3 (4.20-5.40); Red Cell Distribution Width 11.7 % (11.6-14.4); White Blood Count 6.1 K/mm3 (4.8-10.8)
[2022-08-31 09:14] LABS: Alanine Aminotransferase 12 U/L (14-59); Albumin Level 3.9 g/dL (3.4-5.0); Alkaline Phosphatase 77 U/L (46-116); Anion Gap 8 mmol/L (8-16); Aspartate Amino Transferase 11 U/L (15-37); Bilirubin,Total 0.8 mg/dL (0.00-1.00); Blood Urea Nitrogen 15 mg/dL (7-18); Carbon Dioxide 26 mmol/L (21-32); Chloride 107 mmol/L (98-108); Cholesterol 201 mg/dL (0-200); Estimated Glomerular Filt Rate > 60; Glucose 93 mg/dL (70-99); HDL Direct 55 mg/dL (40-60); LDL Cholesterol Calculated 131 mg/dL (<130); Osmolality Calculated 292 mOsm/kg (285-295); Potassium 4.6 mmol/L (3.5-5.1); Sodium 141 mmol/L (136-145); Total Protein 6.9 g/dL (6.4-8.2); Triglycerides 75 mg/dL (0-150); Vitamin B12 378 pg/mL (193-986)
[2022-09-05 10:58] LABS: Hepatitis A Antibody IgM Nonreactive; Hepatitis B Core Antibody Nonreactive (Nonreactive); Hepatitis B Surface Antigen Nonreactive (Nonreactive); Hepatitis C Signal to Cutoff 0.02 ratio (<1.00); Hepatitis C Virus Antibody Nonreactive (Nonreactive)
[2022-09-05 15:45] LABS: Vitamin D 25 Hydroxy 21 ng/mL (30-100)
== END 2022-08-31 08:13 | disposition home or self-care (01) ==
LOC: CHSLAB 08:13
PROVIDERS: PCP Nurse Practitioner Family; Visit Provider Nurse Practitioner Family
DX: Z00.00 Encounter for general adult medical examination without abnormal findings (principal); U07.1 COVID-19; K81.9 Cholecystitis, unspecified; G62.9 Polyneuropathy, unspecified; R10.2 Pelvic and perineal pain
CPT/HCPCS: 36415; 80053; 80061; 80074; 82306; 82607; 84443; 85025; 87491; 87591

== ENCOUNTER 2022-10-04 09:58 | Outpatient (CLI) | payer OTHER, SELFPAY ==
[2022-10-04 11:01] LABS: HIV 1 P24 AG Negative (Negative); HIV 1/2 AB Negative (Negative)
[2022-10-07 13:21] LABS: RPR Screen Non-Reactive (Non-Reactive)
[2022-10-11 10:39] LABS: HSV 1 IgM Screen Negative (Negative); HSV 2 IgM Screen Negative (Negative)
== END 2022-10-04 09:59 | disposition home or self-care (01) ==
PROVIDERS: PCP Nurse Practitioner Family; Visit Provider Nurse Practitioner Family
DX: N94.89 Other specified conditions associated with female genital organs and menstrual cycle (principal)
CPT/HCPCS: 36415; 86592; 86695; 86696; 86703; 87070

== ENCOUNTER 2022-10-04 11:11 | Outpatient (NON) | payer OTHER, SELFPAY | END 2022-10-04 11:12 | disposition home or self-care (01) | LOC: CHSLAB 11:13 | PROVIDERS: Visit Provider Nurse Practitioner Family | DX: N94.89 Other specified conditions associated with female genital organs and menstrual cycle (principal) | CPT/HCPCS: 87070 ==

== ENCOUNTER 2022-11-16 11:57 | Outpatient (NON) | payer OTHER, SELFPAY | END 2022-11-16 11:58 | disposition home or self-care (01) | LOC: CHSLAB 11:57 | PROVIDERS: Visit Provider Nurse Practitioner Family | DX: L02.91 Cutaneous abscess, unspecified (principal) | CPT/HCPCS: 87070; 87075; 87147; 87186; 87205 ==

== ENCOUNTER 2023-03-06 14:55 | Emergency (ER) | payer OTHER, SELFPAY ==
--- NOTE | ~2023-03-06 | XR_ITS ---
EXAMINATION: XR lumbar spine 2-3V DATE: 03/06/2023 15:34 INDICATION: Low back pain. Fall. TECHNIQUE: 3 views of lumbar spine were obtained. COMPARISON: CT abdomen and pelvis 08/04/2022 FINDINGS: There is 6 degrees dextrocurvature of thoracolumbar spine. Vertebral body heights are ever l. There is severely decreased disc height at L5-S1 with endplate remodeling. There is moderate facet joint osteoarthritis at L5-S1. IMPRESSION: 1. Severe lower lumbar spondylosis. Reviewed, dictated and finalized at location A.
[2023-03-06 14:55] VITALS: BP 127/75; PULSE 102; RESP 18; TEMP 37.1; O2SAT 98
--- NOTE | 2023-03-06 15:19 | ED.GENADULT ---
HPI - General Adult General Chief complaint: Back Pain/Injury Stated complaint: right lower back pain and right hip pain Time Seen by Provider: 03/06/23 15:07 History of Present Illness HPI narrative: Jayla is a 42F with a PMH of chronic back pain and a mood disorder that presented with low back pain. It started a couple days ago. 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 Then her 85lb dog pulled her down when she was walking it. After this she had severe pain and her pain locked up. She had no loss of bowel or bladder control or paralysis. She now has a sharp pain in her back that radiates down the back of her right leg. Related Data Allergies Allergy/AdvReac Type Severity Reaction Status Date / Time valproic acid AdvReac Unknown Unknown Verified 03/06/23 15:23 Review of Systems Review of Systems: All systems reviewed & are unremarkable except as noted in HPI and below PMFSH Past Medical History Medical History Acute upper respiratory infection (02/04/14) Back pain (06/28/12) COVID-19 Dysuria (10/04/22) Exercise-induced asthma Neck pain (01/27/14) Routine gynecological examination (05/09/12) Toe pain (11/12/13) Surgical History Surgical History H/O arthroscopic knee surgery R knee - dislocation, 2001 H/O knee surgery H/O: hysterectomy Family History Family History Father Acute myocardial infarction, Onset Age: 59 Cerebrovascular accident, Onset Age: 62 Brain malignant neoplasm, Onset Age: 60 Stage IV cancer, metastasize to lungs Social History Social History Smoking packs per day: 0.5 Smoking cigarettes per day: 10.0 Years smoked: 30 Smoking pack-years: 15.00 Smoking status: Current every day smoker Tobacco type: cigarettes Second hand tobacco smoke exposure: Yes Smoking end date: 07/30/22 Alcohol intake: former Alcohol use details: 6 beers 3 days a week, no alcohol in the last 30 days Substance use: current Substance use type: marijuana Other substance usage details: smoke at nighttime Last use: 08/30/22 Lack of Transportation: No Lack of Food: Never True Current Housing: I Have Housing Concerned About Future Housing: No Difficulty Paying Gas/Electric Bills: No Difficulty Paying for Meds: No Currently Unemployed: No Education: Trade/Vocational Certificate Difficulty w/ Childcare or Family Care: No Spiritual care concerns: No Exam Const: General: healthy appearing and no acute distress Nutritional Appearance: well nourished Orientation/consciousness: patient oriented x3 HENMT: Head: normal to inspection Ears: external ears normal and TM's normal bilaterally Eyes: Conjunctivae: conjunctivae normal Pupils: Equal, round and reactive pupils present Neck: Neck: normal visual inspection Chest: Chest palpation & inspection: normal inspection of the chest Resp: Effort & Inspection: normal respiratory effort Cardio: Rate: regular rate GI: Inspection: non-distended Back/Spine/Pelvis: Other: Hypertonic paraspinal musculature bilaterally that was TTP. Globally reduced ROM in the lumbar spine. Skin: General skin exam: normal color Rashes: no rashes Wounds: no wounds Neuro: General: patient oriented x3 and moves all extremities Cranial nerves: Yes Nystagmus not present Other: 5/5 strength throughout the lower extremities Psych: Mental Status: mental status grossly normal Affect: normal affect Course Course Emergency Course: Ordered radiographs and gave Toradol and cyclobenzaprine EXAMINATION: XR lumbar spine 2-3V DATE: 03/06/2023 15:34 INDICATION: Low back pain. Fall. TECHNIQUE: 3 views of lumbar spine were obtained. COMPARISON: CT abdomen and pelvis 1
[2023-03-06] MEDS: CYCLOBENZAPRINE HCL 10 MG TABLET PO (15:40)
[2023-03-06] MEDS: KETOROLAC 30 MG/ML VIAL (*BKC) IM (15:40)
== END 2023-03-06 15:45 | disposition home or self-care (01) ==
LOC: CHSED 15:51
PROVIDERS: Emergency Provider Family Medicine; PCP Nurse Practitioner Family
DX: M54.30 Sciatica, unspecified side (principal); F17.210 Nicotine dependence, cigarettes, uncomplicated
CPT/HCPCS: 72100; 96372; 99283; A9270; J1885

== ENCOUNTER 2023-07-13 14:32 | Outpatient (CLI) | payer OTHER, SELFPAY ==
--- NOTE | ~2023-07-13 | XR_ITS ---
EXAMINATION: XR thoracic spine 3V DATE: 07/13/2023 14:59 INDICATION: Scoliosis, unspecified TECHNIQUE: AP, lateral and lateral swimmer's views of the thoracic spine were obtained. COMPARISON: None. FINDINGS: There are 8 degrees of lower thoracic levocurvature. Bone alignment is normal. There is no fracture. There is mild loss of intervertebral disc space height at multiple levels in the thoracic s pine. Small degenerative osteophytes project from the anterior endplates of multiple vertebral bodies . Calcified pulmonary nodules and calcified bilateral hilar lymph nodes are consistent with old granu lomatous disease. IMPRESSION: 1. Minimal lower thoracic levocurvature Reviewed, dictated and finalized at location F.
== END 2023-07-13 14:33 | disposition home or self-care (01) ==
LOC: CHSLAB 14:34
PROVIDERS: PCP Nurse Practitioner Family; Visit Provider Nurse Practitioner Family
DX: M41.9 Scoliosis, unspecified (principal); M47.16 Other spondylosis with myelopathy, lumbar region; M43.8X4 Other specified deforming dorsopathies, thoracic region
CPT/HCPCS: 72072

== ENCOUNTER 2023-08-10 08:08 | Outpatient (RCR) | payer OTHER, SELFPAY ==
--- NOTE | 2023-08-10 09:44 | OPREHPOC ---
Outpatient Therapy Plan of Care This is a Multidisciplinary Plan of Care that may contain components documented by all disciplines (PT, OT, and ST.) PT Problem 1 PT Problem #1 Knowledge Deficit PT Goal 1 Goal Patient to demonstrate independence with HEP Target Visit 5 PT Problem 2 PT Problem #2 Pain PT Goal 1 Goal 1. Patient to report highest pain at 2/10 2. Patient to report no sleep disturbance due to low back pain Target Visit 10 PT Problem 3 PT Problem #3 Impaired Strength PT Goal 1 Goal Patient to demonstrate 5/5 strength of B LE to return to house hold tasks at PLOF Target Visit 10 PT Problem 4 PT Problem #4 Impaired Functional Mobil PT Goal 1 Goal 1. Patient to improve Back Index by 20% 2. Patient to report ability to sit for >30 minutes with no increase in low back pain Target Visit 10
--- NOTE | 2023-08-10 09:45 | PTOPEVAL1 ---
Assessment and note entered by Zully Carnes DPT Evaluation Information Assessment Status Evaluation Diagnosis low back pain, R hip pain Onset 07/13/23 Subjective Information Patient reports she chronic back pain. She reports that pain has gradually increased but within the last few months pain has significantly increases. She reports pain starts in the low back and radiates to the R LE to the thigh. She reports pain is worse with sleeping, sitting for long periods of time, and standing stationary. She reports she has done previous PT that helped with pain. 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 She reports she does not do any lifting but is doing house hold tasks throughout the day. Reported Pain Level Pain Score 5,5: Self Report Assessment PT Clinical Summary Patient is a 42 year old female who presents to PT with low back and R LE pain. She demonstrates decreased R LE strength, decreased lumbar mobility and radiating pain to the R LE impairing her ability to sleep and complete house hold tasks required for work and home duties. She would benefit from skilled PT to address impairments and return to PLOF. Plan of Care Interventions Electrical Stimulation,Gait Training,Hot Pack/Cold Pack,Manual Therapy,Mechanical Traction,Neuro Re- education,Patient/Caregiver Educati,Therapeutic Activities,Therapeutic Exercise PT Services Indicated Yes Treatment Frequency and 2x weekly for 10 visits Duration These treatments will address the objective and functional deficits as defined above. The patient will be advanced safely and appropriately in order for the patient to progress towards his/her prior level of function. Additional exercises will be introduced and as well as a comprehensive home exercise program upon discharge, if needed, ?to ensure carryover of functional gains achieved in the clinic. This treatment plan has been reviewed and agreement upon by the patient.
== END 2023-08-10 16:53 | disposition home or self-care (01) ==
LOC: CHSPT 08:08
PROVIDERS: PCP Family Medicine; Visit Provider Nurse Practitioner Family
DX: M47.16 Other spondylosis with myelopathy, lumbar region (principal)
CPT/HCPCS: 97012; 97014; 97110; 97161; G0283

== ENCOUNTER 2024-03-20 09:39 | Outpatient (CLI) | payer OTHER, SELFPAY ==
[2024-03-20 10:22] LABS: SARS-CoV-2 RNA PCR Positive (Negative)
[2024-03-20 10:28] LABS: Influenza A QL RT-PCR Negative (Negative); Influenza B QL RT-PCR Negative (Negative)
== END 2024-03-20 09:40 | disposition home or self-care (01) ==
LOC: CHSLAB 09:40
PROVIDERS: PCP Nurse Practitioner Family; Visit Provider Nurse Practitioner Family
DX: U07.1 COVID-19 (principal)
CPT/HCPCS: 87636

== ENCOUNTER 2024-03-29 11:53 | Outpatient (CLI) | payer OTHER, SELFPAY ==
--- NOTE | ~2024-03-29 | XR_ITS ---
[id number] Ordering provider: Brenda Claudio APRN History: . Hx of Cervicalgia/spondylosis Rt. side cervical pain x1 wk . Comparison: March 07, 2015 FINDINGS: VERTEBRAL BODIES: Normal height and alignment. No visible fracture or subluxation. The dens is intact . DISK SPACES: Well maintained. PARASPINOUS SOFT TISSUES: No prevertebral soft tissue swelling. IMPRESSION: No acute osseous abnormality cervical spine. Reviewed, dictated and finalized at location A.
[2024-03-29 12:21] LABS: Basophils Absolute Auto 0.05 K/mm3 (0.00-0.10); Basophils Percent Auto 0.5 % (0.0-1.0); Eosinophils Absolute Auto 0.26 K/mm3 (0.02-0.50); Eosinophils Percent Auto 2.6 % (1.0-6.0); Hematocrit 43.2 % (35.0-49.0); Hemoglobin 14.7 g/dL (12.0-15.0); Immature Granulocyte Absolute 0.05 K/mm3 (0.00-0.00); Immature Granulocyte Percent A 0.5 % (0.0-0.0); Lymphocytes Absolute Auto 2.68 K/mm3 (1.10-4.50); Lymphocytes Percent Auto 27.2 % (18.0-42.0); Mean Corpuscular Hemoglobin 30.9 pg (27.0-31.0); Mean Corpuscular Volume 90.8 fL (78.0-102.0); Mean Platelet Volume 9.4 fl (9.2-11.8); Monocytes Absolute Auto 0.56 K/mm3 (0.10-0.90); Monocytes Percent Auto 5.7 % (2.0-11.0); Neutrophils Absolute Auto 6.27 K/mm3 (1.70-7.20); Neutrophils Percent Auto 63.5 % (50.0-70.0); Platelet Count Result 349 K/mm3 (150-420); Red Blood Count 4.76 M/mm3 (4.20-5.40); Red Cell Distribution Width 11.4 % (11.6-14.4); White Blood Count 9.9 K/mm3 (4.8-10.8)
[2024-03-29 12:37] LABS: Hemoglobin A1C 5.4 % (<5.7)
[2024-03-29 12:54] LABS: Alanine Aminotransferase 17 U/L (14-59); Albumin Level 4.1 g/dL (3.4-5.0); Alkaline Phosphatase 86 U/L (46-116); Anion Gap 9 mmol/L (4-12); Aspartate Amino Transferase 13 U/L (15-37); Bilirubin,Total 0.4 mg/dL (0.00-1.00); Blood Urea Nitrogen 7 mg/dL (7-18); Calcium 9.5 mg/dL (8.5-10.1); Carbon Dioxide 27 mmol/L (21-32); Chloride 103 mmol/L (98-108); Cholesterol 183 mg/dL (0-200); Estimated Glomerular Filt Rate > 60; Glucose 98 mg/dL (70-99); HDL Direct 54 mg/dL (40-60); LDL Cholesterol Calculated 109 mg/dL (<130); Osmolality Calculated 286 mOsm/kg (285-295); Potassium 4.4 mmol/L (3.5-5.1); Sodium 139 mmol/L (136-145); Thyroid Stimulating Hormone 1.02 uIU/mL (0.36-3.74); Total Protein 7.3 g/dL (6.4-8.2); Triglycerides 99 mg/dL (0-150)
[2024-03-31 05:53] LABS: Vitamin D 25 Hydroxy 38 ng/mL (30-100)
== END 2024-03-29 11:54 | disposition home or self-care (01) ==
LOC: CHSLAB 11:54
PROVIDERS: PCP Nurse Practitioner Family; Visit Provider Nurse Practitioner Family
DX: Z00.00 Encounter for general adult medical examination without abnormal findings (principal); E55.9 Vitamin D deficiency, unspecified; M54.2 Cervicalgia
CPT/HCPCS: 36415; 72040; 80053; 80061; 82306; 83036; 84443; 85025

== ENCOUNTER 2024-04-02 07:57 | Outpatient (RCR) | payer OTHER, SELFPAY ==
--- NOTE | 2024-04-02 08:22 | OPREHPOC ---
Outpatient Therapy Plan of Care This is a Multidisciplinary Plan of Care that may contain components documented by all disciplines (PT, OT, and ST.) PT Problem 1 PT Problem #1 Knowledge Deficit PT Goal 1 Goal 1. independent and compliant with HEP Target Visit 6 PT Problem 2 PT Problem #2 Pain PT Goal 1 Goal 1. decrease pain in the lower back to 4/10 or less at worst 2. decrease pain in the neck to 3/10 or less at worst Target Visit 12 PT Problem 3 PT Problem #3 Impaired Range of Motion PT Goal 1 Goal 1. 100% active lumbar rom with mild pain or less at end range 2. 70 degrees bilateral cervical active rotation 3. 45 degrees or better active cervical extension Target Visit 12 PT Problem 4 PT Problem #4 Impaired Strength PT Goal 1 Goal 1. improve bilateral hip strength to 4+/5 or better 2. improve R ankle DF to 5/5 3. improve core strength to 4/5 or better 4. patient to display 4+/5 or better chin tuck strength Target Visit 12 PT Problem 5 PT Problem #5 Impaired Functional Mobil PT Goal 1 Goal 1. patient to tolerate standing and walking for 1 hour or more without symptoms increased 2. oswestry to display less than 30% functional deficits 3. NDI to display less than 15% functional deficits 4. patient to report reduction of all R LE radicular symptoms to the buttock or higher 5. patient to report elimination of all R UE radicular symptoms. Target Visit 12
--- NOTE | 2024-04-02 08:22 | PTOPEVAL1 ---
Assessment and note entered by JT File, PT Evaluation Information Assessment Status Evaluation ICD-10 Condition Codes (PT) Cervicalgia M54.2 Other ICD-10 Condition Codes ( M41.9 - Scoliosis, unspecified M47.16 - other PT) spondylosis, lumbar Onset 03/29/24 Subjective Information patient reports she has a lot of pain in her neck and down the R side into the arm. she reports she always has pain, but it will wax and wane a bit. she reports she is unable to sleep on the R side. she reports she is losing strength on the R side. she reports she has had an xray of the neck. she reports she has not devon scheduled for an MRI yet. she reports she has pain in the lower back all the time. she reports she gets a lot of mm spasms, and sciatic pain. she reports she does have pain and symptoms down the R LE. she reports she has increased symptoms with prolonged walking and lifting. 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 she reports standing and bending also cause increased pain and symptoms in the lower back. she reports she has been having symptoms in both the neck and the back for years, but has gotten significantly worse in the last 6 months. Reported Pain Level Pain Score 3,7: Self Report Assessment PT Clinical Summary mrs. lynn is a 43 yo woman who presents to skilled PT services for evaluation and treatment of neck and lower back pain. she displays deficits in cervical and lumbar rom, cervical and lumbar core strength, LE strength, pain, and deficits in functional activity tolerance. she displays signs and symptoms of R cervical radiculopathy and cervical and lumbar DDD. continued skilled PT is indicated to improve her objective/functional deficits and improve her functional activity performance to improve quality of life. Plan of Care Interventions Electrical Stimulation,Hot Pack/Cold Pack,Manual Therapy,Mechanical Traction,Neuro Re-education, Patient/Caregiver Educati,Therapeutic Activities, Therapeutic Exercise PT Services Indicated Yes Treatment Frequency and 2x weekly for 12 visits Duration These treatments will address the objective and functional deficits as defined above. The patient will be advanced safely and appropriately in order for the patient to progress towards his/her prior level of function. Additional exercises will be introduced and as well as a comprehensive home exercise program upon discharge, if nee
--- NOTE | 2024-04-04 09:23 | PCPTNOTE ---
Patient did not show up for scheduled appointment this date.
== END 2024-04-02 08:15 | disposition home or self-care (01) ==
LOC: CHSPT 07:57
PROVIDERS: PCP Nurse Practitioner Family; Visit Provider Nurse Practitioner Family
DX: M47.16 Other spondylosis with myelopathy, lumbar region (principal); M41.9 Scoliosis, unspecified; M54.2 Cervicalgia
CPT/HCPCS: 97012; 97014; 97161; G0283

== ENCOUNTER 2024-09-20 14:57 | Outpatient (CLI) | payer OTHER, SELFPAY ==
--- NOTE | ~2024-09-20 | CT_ITS ---
CT brain wo con Ordering provider: Brenda Claudio APRN History: 43 years Female with . LT SIDE DC X1WK S/P DIARRHEA,DIZZY,BLURRY VISION . Comparison: December 23, 2012 Technique: CT of the head without contrast. Radiation reduction technique utilized.The dose-length product was 529.67 mGy-cm. FINDINGS: BRAIN PARENCHYMA AND CSF SPACES: No midline shift, mass effect or hemorrhage. The brain parenchyma a nd CSF spaces are otherwise normal. VISUALIZED PARANASAL SINUSES: Well aerated. MASTOIDS: Well aerated. BONES: The bones appear intact. SOFT TISSUES: Visualized nasopharynx is normal. Superficial soft tissues are normal. IMPRESSION: No acute intracranial findings. Reviewed, dictated and finalized at location A. UT FARMER
[2024-09-20 15:25] LABS: Basophils Absolute Auto 0.05 K/mm3 (0.00-0.10); Basophils Percent Auto 0.5 % (0.0-1.0); Eosinophils Absolute Auto 0.31 K/mm3 (0.02-0.50); Eosinophils Percent Auto 3.4 % (1.0-6.0); Hematocrit 38.1 % (35.0-49.0); Hemoglobin 13.1 g/dL (12.0-15.0); Immature Granulocyte Absolute 0.04 K/mm3 (0.00-0.00); Immature Granulocyte Percent A 0.4 % (0.0-0.0); Lymphocytes Absolute Auto 2.43 K/mm3 (1.10-4.50); Lymphocytes Percent Auto 26.4 % (18.0-42.0); Mean Corpuscular HGB Conc 34.4 g/dL (32-36); Mean Corpuscular Hemoglobin 30.3 pg (27.0-31.0); Mean Platelet Volume 9.1 fl (9.2-11.8); Monocytes Absolute Auto 0.79 K/mm3 (0.10-0.90); Monocytes Percent Auto 8.6 % (2.0-11.0); Neutrophils Absolute Auto 5.58 K/mm3 (1.70-7.20); Neutrophils Percent Auto 60.7 % (50.0-70.0); Platelet Count Result 332 K/mm3 (150-420); Red Blood Count 4.33 M/mm3 (4.20-5.40); Red Cell Distribution Width 11.7 % (11.6-14.4); White Blood Count 9.2 K/mm3 (4.8-10.8)
[2024-09-20 15:34] LABS: Add Urine Microscopic? YES; Appearance Urine Cloudy (Clear); Bilirubin Urine Negative (Negative); Blood Urine Negative (Negative); Color Urine Yellow (Yellow); Glucose Urine UA Negative (Negative); Ketones Urine Trace (Negative); Leukocyte Esterase Ur Negative LEU/UL (Negative); Nitrate Urine Negative (Negative); Protein Urine Trace (Negative); Specific Grav Ur >= 1.030 (1.010-1.020); Urobilinogen Urine 0.2 mg/dL (0.2-1.0)
[2024-09-20 15:39] LABS: Alanine Aminotransferase 18 U/L (14-59); Albumin Level 3.5 g/dL (3.4-5.0); Alkaline Phosphatase 89 U/L (46-116); Anion Gap 9 mmol/L (4-12); Aspartate Amino Transferase 14 U/L (15-37); Bilirubin,Total 0.3 mg/dL (0.00-1.00); Blood Urea Nitrogen 11 mg/dL (7-18); CRP 0.6 mg/dL (0.0-0.9); Calcium 8.8 mg/dL (8.5-10.1); Carbon Dioxide 30 mmol/L (21-32); Chloride 107 mmol/L (98-108); Estimated Glomerular Filt Rate > 60; Glucose 91 mg/dL (70-99); Osmolality Calculated 301 mOsm/kg (285-295); Potassium 3.2 mmol/L (3.5-5.1); Sodium 146 mmol/L (136-145); Total Protein 6.7 g/dL (6.4-8.2)
[2024-09-20 15:47] LABS: RBC Urine None seen /hpf (0-2); Squamous Epithelial Cell Urine Moderate /hpf (Few); WBC Urine None seen /hpf (0-3)
[2024-09-20 15:48] LABS: Bacteria Urine 1+ /hpf
[2024-09-20 15:57] LABS: Strep Group A RT-PCR NOT DETECTED (Negative)
[2024-09-20 16:01] LABS: SARS-CoV-2 RNA PCR Negative (Negative)
[2024-09-20 16:03] LABS: Influenza A QL RT-PCR Negative (Negative); Influenza B QL RT-PCR Negative (Negative); RSV RNA, RT-PCR Negative (Negative)
[2024-09-20 16:39] LABS: Lipase 11 U/L (16-77)
[2024-09-21 15:20] LABS: Toxigenic C. Diff POSITIVE (NEGATIVE)
[2024-09-24 15:02] LABS: Occult Blood Negative (Negative)
[2024-09-25 14:29] LABS: Fecal Fat, Ql Normal (Normal)
== END 2024-09-20 14:58 | disposition home or self-care (01) ==
PROVIDERS: PCP Nurse Practitioner Family; Visit Provider Nurse Practitioner Family
DX: U07.1 COVID-19 (principal); R50.9 Fever, unspecified; R10.9 Unspecified abdominal pain; G44.52 New daily persistent headache (NDPH); R19.7 Diarrhea, unspecified
CPT/HCPCS: 36415; 70450; 80053; 81001; 82272; 82653; 82705; 83690; 83993; 85025; 86140; 87045; 87269; 87427; 87449; 87493; 87637; 87651

== ENCOUNTER 2025-03-16 11:58 | Observation (INO) | payer OTHER, SELFPAY ==
--- NOTE | ~2025-03-16 | CT_ITS ---
CT of the Abdomen and Pelvis: Indication: Abdominal pain Technique: 2.5 mm axial scans were obtained through the abdomen and pelvis following intravenous adm inistration of 100 cc of Omnipaque 350. Dose reduction technique was used on this scan by utilizing a utomated exposure control and iterative reconstruction technique. The dose-length product (DLP) was 1 95.10 mGy-cm. COMPARISON: 08/04/2022 Findings: Scans through the lung bases are unremarkable. The liver, spleen, pancreas, gallbladder, adrenals and kidneys are within normal limits. No evidence of aortic aneurysm. No lymphadenopathy. Question mild diffuse large bowel wall thickening versus underdistention. No bowel obstruction. No ab scess or free air. Images through the pelvis were performed. Urinary bladder unremarkable. No pelvic mass seen. No ascit es. Impression: Questionable mild diffuse large bowel wall thickening versus underdistention. Correlate for any possi bility of infectious/inflammatory colitis. Reviewed, dictated and finalized at location . Impression: Questionable mild diffuse large bowel wall thickening versus underdistention. C orrelate for any possibility of infectious/inflammatory colitis.
[2025-03-16 11:59] VITALS: BP 133/94; PULSE 81; RESP 18; TEMP 36.6; O2SAT 98
--- NOTE | 2025-03-16 12:03 | ED.GENADULT ---
HPI - General Adult General Chief complaint: Abdominal Pain Stated complaint: abdominal pain Time Seen by Provider: 03/16/25 12:02 History of Present Illness HPI narrative: Jayla is a 44F with a PMH of gallstones, C.diff, pyelonephritis and bipolar disorder that presented to the ED with a few days of abdominal pain, nausea and a few episodes of watery diarrhea a day. It became much worse yesterday. No melena, hematochezia, CP or dyspnea. It feels like previous C. diff episodes. Related Data Allergies Allergy/AdvReac Type Severity Reaction Status Date / Time valproic acid AdvReac Unknown Unknown Verified 03/16/25 12:02 Review of Systems Review of Systems: All systems reviewed & are unremarkable except as noted in HPI and below PMFSH Past Medical History Medical History C. difficile diarrhea Toe pain (11/12/13) Routine gynecological examination (05/09/12) Neck pain (01/27/14) Dysuria (10/04/22) Back pain (06/28/12) Acute upper respiratory infection (02/04/14) Exercise-induced asthma COVID-19 Surgical History Surgical History H/O arthroscopic knee surgery R knee - dislocation, 2001 H/O knee surgery H/O: hysterectomy Family History Family History Father Acute myocardial infarction, Onset Age: 59 Cerebrovascular accident, Onset Age: 62 Brain malignant neoplasm, Onset Age: 60 Stage IV cancer, metastasize to lungs Social History Social History Smoking packs per day: 0.5 Smoking cigarettes per day: 10.0 Years smoked: 30 Smoking pack-years: 15.00 Smoking status: Current every day smoker Tobacco type: e-cigarettes/vaping Second hand tobacco smoke exposure: No Smoking end date: 07/30/22 Alcohol intake: current Drinks per week: 1 Alcohol use details: 6 beers 3 days a week, no alcohol in the last 30 days Substance use: current Substance use type: marijuana Other substance usage details: smoke at nighttime Last use: 08/30/22 Do You Feel Safe in your Home?: Yes Lack of Transportation: No Lack of Food: Never True Current Housing: I Have Housing Concerned About Future Housing: No Difficulty Paying Gas/Electric Bills: No Difficulty Paying for Meds: No Currently Unemployed: No Education: High School Diploma/GED Difficulty w/ Childcare or Family Care: No Spiritual care concerns: No Exam Narrative: Ordered fluids, zofran, morphine and labs Const: General: cooperative, healthy appearing, comfortable, no acute distress, well developed, alert, awake and Physically active Orientation/consciousness: oriented to person, oriented to place and oriented to time HENMT: Head: normal to inspection, normocephalic and atraumatic Ears: hearing grossly normal bilaterally and external ears normal Face/Nose/Sinus: Normal external nose present Eyes: General: appearance normal, both eyes and all related structures Periorbital: periorbital findings normal Sclera: sclerae normal Pupils: Equal, round and reactive pupils present Neck: Neck: normal visual inspection Chest: Chest palpation & inspection: normal inspection of the chest Resp: Effort & Inspection: normal respiratory effort, able to speak in complete sentences and no respiratory distress Auscultation: clear to auscultation bilaterally Cardio: Jugular venous distension: no JVD Rate: regular rate Rhythm: regular rhythm GI: Inspection: normal to inspection GI Palp: Yes Soft to palpation Auscultation: normal bowel sounds Other: diffusely TTP, especially LLQ Skin: General skin exam: normal color and no rashes or lesions noted Neuro: General: oriented to person, oriented to place and oriented to time Cranial nerves: Yes Equal, round and reactive pupils present Extrem: General: normal to inspection Course Course Emergency Course: Ordered labs, CT and fluid. Labs largely unremarkable except for the +Cdiff CT of the Abdomen and Pelvis: Indication: Abdominal pain Technique: 2.5 mm axial scans were obtained through the abdomen and pelvis following intravenous administration of 100 cc of Omnipaque 350. Dose reduction technique was used on this scan by utilizing automated exposure control and iterative reconstruction technique. The dose-length product (DLP) was 195.10 mGy-cm. COMPARISON: 08/04/2022 Findings: Scans through the lung bases are unremarkable. The liver, spleen, pancreas, gallbladder, adrenals and kidneys are within normal limits. No evidence of aortic aneurysm. No lymphadenopathy. Question mild diffuse large bowel wall thickening versus underdistention. No bowel obstruction. No abscess or free air. Images through the pelvis were performed. Urinary bladder unremarkable. No pelvic mass seen. No ascites. Impression: Questionable mild diffuse large bowel wall thickening versus underdistention. Correlate for any possibility of infectious/inflammatory colitis. Despite giving extra dilaudid and diphenhydramine she still had pain, nausea, and would struggle with PO. Given this I spoke with hospitalist that accepted patient for admission at 1440. Vital Signs Vital signs: Vital Signs Temperature 97.9 F 03/16/25 11:59 Pulse Rate 81 03/16/25 11:59 Respiratory Rate 18 03/16/25 11:59 Blood Pressure 133/94 H 03/16/25 11:59 Pulse Oximetry 98 03/16/25 11:59 Oxygen Delivery Room Air 03/16/25 11:59 Temperature 97.0 F L 03/16/25 16:03 Pulse Rate 64 03/16/25 16:03 Respiratory Rate 18 03/16/25 16:03 Blood Pressure 137/85 03/16/25 16:03 Pulse Oximetry 97 03/16/25 16:03 Oxygen Delivery Room Air 03/16/25 16:03 Medical Decision Making Vital Signs Vital Signs: Vital Signs Temperature 97.9 F 03/16/25 11:59 Pulse Rate 81 03/16/25 11:59 Respiratory Rate 18 03/16/25 11:59 Blood Pressure 133/94 H 03/16/25 11:59 Pulse Oximetry 98 03/16/25 11:59 Oxygen Delivery Room Air 03/16/25 11:59 Temperature 97.0 F L 03/16/25 16:03 Pulse Rate 64 03/16/25 16:03 Respiratory Rate 18 03/16/25 16:03 Blood Pressure 137/85 03/16/25 16:03 Pulse Oximetry 97 03/16/25 16:03 Oxygen Delivery Room Air 03/16/25 16:03 Lab Data 03/16/25 12:12 03/16/25 12:12 Labs: Lab Results 03/16/25 03/16/25 Range/Units 12:02 12:12 WBC 10.1 (4.8-10.8) K/mm3 RBC 4.60 (4.20-5.40) M/mm3 Hgb 14.0 (12.0-15.0) g/dL Hct 41.8 (35.0-49.0) % MCV 90.9 (78.0-102.0) fL MCH 30.4 (27.0-31.0) pg MCHC 33.5 (32-36) g/dL RDW 11.7 (11.6-14.4) % Plt Count 321 (150-420) K/mm3 MPV 9.4 (9.2-11.8) fl Immature Gran % (Auto) 0.3 H (0.0-0.0) % Neut % (Auto) 61.7 (50.0-70.0) % Lymph % (Auto) 28.5 (18.0-42.0) % Ocean % (Auto) 7.1 (2.0-11.0) % Eos % (Auto) 1.7 (1.0-6.0) % Baso % (Auto) 0.7 (0.0-1.0) % Lymph # (Auto) 2.88 (1.10-4.50) K/mm3 Ocean # (Auto) 0.72 (0.10-0.90) K/mm3 Eos # (Auto) 0.17 (0.02-0.50) K/mm3 Baso # (Auto) 0.07 (0.00-0.10) K/mm3 Abs Immat Gran (auto) 0.03 H (0.00-0.00) K/mm3 Absolute Neuts (auto) 6.22 (1.70-7.20) K/mm3 Absolute Nucleated RBC 0.00 (0.00-0.00) K/mm3 Nucleated RBC % 0.0 (0-0.0) % Sodium 138 (137-145) mmol/L Potassium 3.9 (3.4-5.0) mmol/L Chloride 111 H (98-107) mmol/L Carbon Dioxide 19 L (22-30) mmol/L Anion Gap 8 (4-12) mmol/L BUN 8 (7-17) mg/dL Creatinine 0.76 (0.7-1.0) mg/dL Estim Creat Clear Calc 71 ml/min Estimated GFR > 60 (59 - ) Glucose 115 H (65-110) mg/dL Calculated Osmolality 285 (285-295) mOsm/kg Lactic Acid 2.0 (0.4-2.0) mmol/L Calcium 9.3 (8.4-10.2) mg/dL Magnesium 2.0 (1.6-2.3) mg/dL Total Bilirubin 0.7 (0.2-1.3) mg/dL AST 24 (14-36) U/L ALT 19 (6-35) U/L Alkaline Phosphatase 73 (38-126) U/L C-Reactive Protein < 0.5 (<1.0) mg/dL Total Protein 7.4 (6.3-8.2) g/dL Albumin 4.4 (3.5-5.1) g/dL Lipase 30 (23-300) U/L TSH 0.779 (0.465-4.680) uIU/mL Urine Color Light yellow (Yellow) Urine Appearance Clear (Clear) Urine pH 6.0 (5.0-8.0) Ur Specific [place] 1.010 (1.010-1.020) Urine Protein Negative (Negative) Urine Glucose (UA) Negative (Negative) Urine Ketones Negative (Negative) Ur Blood (Man) Negative (Negative) Urine Nitrate Negative (Negative) Urine Bilirubin Negative (Negative) Urine Urobilinogen 0.2 (0.2-1.0) mg/dL Leukocyte Esterase Rfl Negative (Negative) SERA/UL C. difficile (PCR) Positive A* (NEGATIVE) Discharge Plan Discharge Clinical Impression: C. difficile colitis Patient Disposition: Acute [facility] Condition: Serious
[2025-03-16 12:18] LABS: Basophils Absolute Auto 0.07 K/mm3 (0.00-0.10); Basophils Percent Auto 0.7 % (0.0-1.0); Eosinophils Absolute Auto 0.17 K/mm3 (0.02-0.50); Eosinophils Percent Auto 1.7 % (1.0-6.0); Hematocrit 41.8 % (35.0-49.0); Immature Granulocyte Absolute 0.03 K/mm3 (0.00-0.00); Immature Granulocyte Percent A 0.3 % (0.0-0.0); Lymphocytes Absolute Auto 2.88 K/mm3 (1.10-4.50); Lymphocytes Percent Auto 28.5 % (18.0-42.0); Mean Corpuscular HGB Conc 33.5 g/dL (32-36); Mean Corpuscular Hemoglobin 30.4 pg (27.0-31.0); Mean Corpuscular Volume 90.9 fL (78.0-102.0); Mean Platelet Volume 9.4 fl (9.2-11.8); Monocytes Absolute Auto 0.72 K/mm3 (0.10-0.90); Monocytes Percent Auto 7.1 % (2.0-11.0); Neutrophils Absolute Auto 6.22 K/mm3 (1.70-7.20); Neutrophils Percent Auto 61.7 % (50.0-70.0); Platelet Count Result 321 K/mm3 (150-420); Red Cell Distribution Width 11.7 % (11.6-14.4); White Blood Count 10.1 K/mm3 (4.8-10.8)
[2025-03-16 12:23] LABS: Appearance Urine Clear (Clear); Bilirubin Urine Negative (Negative); Blood Urine Negative (Negative); Color Urine Light Yellow (Yellow); Glucose Urine UA Negative (Negative); Ketones Urine Negative (Negative); Nitrate Urine Negative (Negative); Protein Urine Negative (Negative); Urobilinogen Urine 0.2 mg/dL (0.2-1.0)
[2025-03-16 12:24] LABS: Add Urine Microscopic? NO; Leukocyte Esterase Ur Negative LEU/UL (Negative)
[2025-03-16 12:34] LABS: Alanine Aminotransferase 19 U/L (6-35); Albumin Level 4.4 g/dL (3.5-5.1); Alkaline Phosphatase 73 U/L (38-126); Anion Gap 8 mmol/L (4-12); Aspartate Amino Transferase 24 U/L (14-36); Bilirubin,Total 0.7 mg/dL (0.2-1.3); Blood Urea Nitrogen 8 mg/dL (7-17); CRP < 0.5 mg/dL (<1.0); Calcium 9.3 mg/dL (8.4-10.2); Carbon Dioxide 19 mmol/L (22-30); Chloride 111 mmol/L (98-107); Estimated CRCL calculation 71 ml/min; Estimated Glomerular Filt Rate > 60; Glucose 115 mg/dL (65-110); Lipase 30 U/L (23-300); Osmolality Calculated 285 mOsm/kg (285-295); Potassium 3.9 mmol/L (3.4-5.0); Sodium 138 mmol/L (137-145); Total Protein 7.4 g/dL (6.3-8.2)
[2025-03-16] MEDS: MORPHINE SULFATE (*CRX) 4 MG/ML INJ IV PUSH (12:34)
[2025-03-16] MEDS: ONDANSETRON INJ 4 MG/2 ML VIAL IV PUSH (12:34)
[2025-03-16] MEDS: LACTATED RINGERS 1,000 ML 999 ML IV CONT (12:34)
[2025-03-16 13:02] LABS: Thyroid Stimulating Hormone 0.779 uIU/mL (0.465-4.680)
[2025-03-16 13:03] LABS: Toxigenic C. Diff POSITIVE (NEGATIVE)
[2025-03-16] MEDS: VANCOMYCIN HCL 125 MG ORAL CAPSULE PO (13:42)
[2025-03-16] MEDS: HYDROmorphone HCL INJ (*CRX) 2 MG/ML VIAL 0.5 MG IV PUSH (14:22)
[2025-03-16] MEDS: diphenhydrAMINE HCl INJ 50 MG/ML VIAL IV PUSH (14:22)
[2025-03-16 14:59] VITALS: BP 138/85; PULSE 76; RESP 16; TEMP 36.8; O2SAT 98
[2025-03-16 15:20] VITALS: PULSE 64; RESP 18; O2SAT 97
[2025-03-16 15:34] VITALS: BMI 19.0
[2025-03-16 16:03] VITALS: BP 137/85; PULSE 64; RESP 18; TEMP 36.1; O2SAT 97
--- NOTE | 2025-03-16 16:14 | PC.NURSE ---
Patient arrived to unit in w/c from ED and was admitted to room 211 for observation. Patient educated on use of call light, bed controls, use of rapid response, visiting hours and general hospital policies. Patient voiced understanding.
[2025-03-16] MEDS: SODIUM CHLORIDE 0.9% IV 1,000 ML 100 ML IV CONT (17:08)
[2025-03-16] MEDS: SACCHAROMYCES BOULARDII 250 MG CAPSULE PO (17:08)
[2025-03-16] MEDS: GABAPENTIN 300 MG CAPSULE PO (17:08)
[2025-03-16] MEDS: HYDROcodone/acetaminophen (*CRX) 5-325 MG TABLET 1 TAB PO ×2 (18:47→23:05)
[2025-03-16] MEDS: FIDAXOMICIN 200 MG TABLET PO (20:24)
[2025-03-16 21:40] VITALS: BP 114/74; PULSE 74; RESP 18; TEMP 36.3; O2SAT 97
[2025-03-17] VITALS: BP 118/68; PULSE 63; RESP 17; TEMP 36.4; O2SAT 98
[2025-03-17] MEDS: SODIUM CHLORIDE 0.9% IV 1,000 ML 100 ML IV CONT ×3 (03:05→23:47)
[2025-03-17] MEDS: HYDROcodone/acetaminophen (*CRX) 5-325 MG TABLET 1 TAB PO ×4 (03:09→20:48)
[2025-03-17 05:49] LABS: Basophils Absolute Auto 0.06 K/mm3 (0.00-0.10); Basophils Percent Auto 0.8 % (0.0-1.0); Eosinophils Absolute Auto 0.24 K/mm3 (0.02-0.50); Eosinophils Percent Auto 3.3 % (1.0-6.0); Hematocrit 36.5 % (35.0-49.0); Hemoglobin 12.1 g/dL (12.0-15.0); Immature Granulocyte Absolute 0.02 K/mm3 (0.00-0.00); Immature Granulocyte Percent A 0.3 % (0.0-0.0); Lymphocytes Absolute Auto 3.25 K/mm3 (1.10-4.50); Lymphocytes Percent Auto 45.2 % (18.0-42.0); Mean Corpuscular HGB Conc 33.2 g/dL (32-36); Mean Corpuscular Hemoglobin 30.6 pg (27.0-31.0); Mean Corpuscular Volume 92.2 fL (78.0-102.0); Mean Platelet Volume 9.7 fl (9.2-11.8); Monocytes Absolute Auto 0.56 K/mm3 (0.10-0.90); Monocytes Percent Auto 7.8 % (2.0-11.0); Neutrophils Absolute Auto 3.06 K/mm3 (1.70-7.20); Neutrophils Percent Auto 42.6 % (50.0-70.0); Platelet Count Result 252 K/mm3 (150-420); Red Blood Count 3.96 M/mm3 (4.20-5.40); Red Cell Distribution Width 11.5 % (11.6-14.4); White Blood Count 7.2 K/mm3 (4.8-10.8)
[2025-03-17 06:00] LABS: Alanine Aminotransferase 10 U/L (6-35); Albumin Level 3.4 g/dL (3.5-5.1); Alkaline Phosphatase 60 U/L (38-126); Anion Gap 2 mmol/L (4-12); Aspartate Amino Transferase 17 U/L (14-36); Bilirubin,Total 0.5 mg/dL (0.2-1.3); Blood Urea Nitrogen 5 mg/dL (7-17); Calcium 8.4 mg/dL (8.4-10.2); Carbon Dioxide 26 mmol/L (22-30); Chloride 109 mmol/L (98-107); Estimated CRCL calculation 71 ml/min; Estimated Glomerular Filt Rate > 60; Glucose 87 mg/dL (65-110); Magnesium 1.8 mg/dL (1.6-2.3); Osmolality Calculated 280 mOsm/kg (285-295); Potassium 3.9 mmol/L (3.4-5.0); Sodium 137 mmol/L (137-145); Total Protein 5.9 g/dL (6.3-8.2)
[2025-03-17 08:00] VITALS: BP 122/64; PULSE 74; RESP 14; TEMP 36.6; O2SAT 98
[2025-03-17] MEDS: ONDANSETRON INJ 4 MG/2 ML VIAL IV PUSH ×2 (08:58→16:10)
[2025-03-17] MEDS: FIDAXOMICIN 200 MG TABLET PO ×2 (10:06→20:48)
[2025-03-17] MEDS: FLUoxetine HCL 20 MG CAPSULE 40 MG PO (10:06)
[2025-03-17] MEDS: SACCHAROMYCES BOULARDII 250 MG CAPSULE PO ×3 (10:06→16:10)
[2025-03-17] MEDS: GABAPENTIN 300 MG CAPSULE PO ×2 (10:07→16:10)
--- NOTE | 2025-03-17 12:34 | P.HP_ITS ---
H&P: HPI History of Present Illness Date/Time: 03/17/25 12:34 Chief Complaint: ABD Pain/Diarrhea Narrative: Patient is a 44-year-old female who presented to the emergency department with complaints of abdominal pain and diarrhea with some nausea able to tolerate oral intake. patient reports she does have a history of C diff which she was diagnosed back in August following a round of antibiotic therapy states this feels the same as previous infection. patient reports symptoms began about 3 days prior to arrival and she has had continuous multiple episodes of diarrhea a few hours prior to arriving to the emergency department she had severe abdominal cramping was unable to tolerate any oral intake. patient denied any chest pain, shortness breath, fever, chills, dizziness, or any recent sick contacts. patient did report she was treated with oral vancomycin for previous C diff infection. In the Ed: in the emergency department patient tested positive for C diff infection in CT abdomen was showing colitis, other labs unremarkable and vital stable however she was still unable to tolerate any oral intake that time she was admitted for further evaluation and treatment of C diff colitis. Patient was admitted to the medical unit placed on IV fluids for any dehydration, pain management, antiemetics had received 1 dose oral vanc in the emergency department and was transitioned to oral Dificid. patient still reporting abdominal pain and was unable to tolerate her breakfast this morning will continue to advance diet as tolerated and continue with pain management. Review of Systems Review of Systems: All systems reviewed & are unremarkable except as noted in HPI and below PMFSH Past Medical History Medical History C. difficile diarrhea Toe pain (11/12/13) Routine gynecological examination (05/09/12) Neck pain (01/27/14) Dysuria (10/04/22) Back pain (06/28/12) Acute upper respiratory infection (02/04/14) Exercise-induced asthma COVID-19 Surgical History Surgical History H/O arthroscopic knee surgery R knee - dislocation, 2001 H/O knee surgery H/O: hysterectomy Family History Family History Father Acute myocardial infarction, Onset Age: 59 Cerebrovascular accident, Onset Age: 62 Brain malignant neoplasm, Onset Age: 62 Stage IV cancer, metastasize to lungs Social History Social History Smoking packs per day: 0.5 Smoking cigarettes per day: 10.0 Years smoked: 30 Smoking pack-years: 15.00 Smoking status: Current every day smoker Tobacco type: e-cigarettes/vaping Second hand tobacco smoke exposure: No Smoking end date: 07/30/22 Alcohol intake: current Drinks per week: 1 Alcohol use details: 6 beers 3 days a week, no alcohol in the last 30 days Substance use: current Substance use type: marijuana Other substance usage details: smoke at nighttime Last use: 08/30/22 Do You Feel Safe in your Home?: Yes Lack of Transportation: No Lack of Food: Never True Current Housing: I Have Housing Concerned About Future Housing: No Difficulty Paying Gas/Electric Bills: No Difficulty Paying for Meds: No Currently Unemployed: No Education: High School Diploma/GED Difficulty w/ Childcare or Family Care: No Spiritual care concerns: No Meds Home Medications and Allergies Home Medications ?Medication ?Instructions ?Recorded ?Confirmed ?Type fluoxetine 20 mg capsule 40 mg (2 x 20 mg) PO DAILY 3 09/02/24 03/16/25 Rx months #180 caps ondansetron 8 mg disintegrating See Rx Instructions .Route 11/12/24 03/16/25 Rx tablet .COMPLEX #30 tabs gabapentin 600 mg tablet See Rx Instructions .Route 01/02/25 03/16/25 Rx .COMPLEX #180 tabs fidaxomicin 200 mg tablet (Dificid) 200 mg PO Q12H 10 days #20 tabs 03/16/25 Rx hydrocodone 5 mg-acetaminophen 325 1 tablet PO Q8H PRN pain #10 tabs 03/16/25 Rx mg tablet vancomycin 125 mg capsule 125 mg PO Q6H 10 days #40 caps 03/16/25 Rx Allergies Allergy/AdvReac Type Severity Reaction Status Date / Time valproic acid AdvReac Unknown Unknown Verified 03/16/25 12:02 Vital Signs Vital Signs - 24 hr 03/16/25 14:59 03/16/25 15:20 03/16/25 16:03 Temperature 98.2 F 97.0 F L Pulse Rate 76 64 64 Respiratory Rate 16 18 18 Blood Pressure 138/85 137/85 Pulse Oximetry 98 97 97 Oxygen Delivery Room Air Room Air Room Air 03/16/25 21:40 03/17/25 00:00 03/17/25 08:00 Temperature 97.4 F L 97.6 F 97.8 F Pulse Rate 74 63 74 Respiratory Rate 18 17 14 Blood Pressure 114/74 118/68 122/64 Pulse Oximetry 97 98 98 Oxygen Delivery Room Air Room Air Room Air Exam Const: General: comfortable and no acute distress HENMT: Face/Nose/Sinus: Normal nares present Mouth: Yes moist mucous membranes Eyes: General: appearance normal, both eyes and all related structures Sclera: sclerae normal Pupils: Equal, round and reactive pupils present Neck: Neck: supple and no JVD Resp: Effort & Inspection: normal respiratory effort Auscultation: clear to auscultation bilaterally Cardio: Rate: regular rate Rhythm: regular rhythm GI: GI Palp: Yes Tenderness to palpation present (GI) Auscultation: normal bowel sounds Skin: General skin exam: normal color and no rashes or lesions noted Wounds: no wounds Neuro: General: gait normal Speech: normal speech Motor exam (neuro): 5/5 motor strength present throughout Extrem: General: normal to inspection Psych: Mental Status: mental status grossly normal Affect: normal affect H&P: Results Labs Labs: Short CBC 03/17/25 Range/Units 05:25 WBC 7.2 (4.8-10.8) K/mm3 Hgb 12.1 (12.0-15.0) g/dL Hct 36.5 (35.0-49.0) % Plt Count 252 (150-420) K/mm3 [facility] 03/16/25 03/17/25 12:12 05:25 Sodium 138 137 Potassium 3.9 3.9 Chloride 111 H 109 H Carbon Dioxide 19 L 26 BUN 8 5 L Creatinine 0.76 0.75 Glucose 115 H 87 Calcium 9.3 8.4 Liver Function 03/16/25 03/17/25 Range/Units 12:12 05:25 Total Bilirubin 0.7 0.5 (0.2-1.3) mg/dL AST 24 17 (14-36) U/L ALT 19 10 (6-35) U/L Alkaline Phosphatase 73 60 (38-126) U/L Albumin 4.4 3.4 L (3.5-5.1) g/dL Assessment and Plan Assessment and plan (1) C. difficile colitis: Code(s): A04.72 - Enterocolitis due to Clostridium difficile, not specified as recurrent Status: Acute Assessment and Plan: patient had previous episode of C diff back in August 2024 was treated with oral vancomycin presents today positive for C diff again but denied any recent antibiotic use * started on Dificid b.i.d. times 10 days if unable to afford will discharge on oral pulse taper of vancomycin * IV fluids * monitor electrolytes and replenish as needed especially potassium and magnesium * advance diet as tolerated * pain management * PPI * patient will need referral to GI likely need colonoscopy in 6-8 weeks after infectious process (2) Generalized anxiety disorder: Onset Date: 06/24/11 Code(s): F41.1 - Generalized anxiety disorder Status: Acute Assessment and Plan: * continued patient's Prozac Plan Code status: Full code per patient DVT prophylaxis: Lovenox Stress ulcer prophylaxis: Protonix 40 daily PT/OT notes: ambulatory Disposition: patient admitted for C diff colitis will continue with current treatment plan if patient can tolerate oral intake can likely discharge tomorrow on oral antibiotic therapy will need to follow-up outpatient with GI. Quality VTE Prophylaxis VTE prophylaxis: pharmacologic ordered -Patient's previous records reviewed on admission -ER notes reviewed in detail on admission -discussed all findings and current treatment plan with patient/Family/POA -Consultations reviewed for recommendations -Patient's disposition for safe discharge discussed with correctional casework specialist Dictation performed by [employer] direct speech recognition software, therefore machinist variants and typographical errors may occur. Hospitalist MIPS Advance Care Plan I have confirmed that the patient's Advanced Care Plan is present, code status is documented, or surrogate decision maker is listed in patient medical record.: Yes Medication Reconciliation I have utilized all available resources to obtain, update and review the patients current medications (includes all prescriptions, OTC, herbals, cannabis, and nutritional supplements).: Yes The patient is not eligible for med reconciliation; the patient is in a emergent medical situation where delaying treatment would jeopardize the patients health.: No
[2025-03-17] MEDS: PANTOPRAZOLE 40 MG TABLET PO (14:06)
[2025-03-17 16:00] VITALS: BP 116/66; PULSE 68; RESP 16; TEMP 36.6; O2SAT 97
[2025-03-17 20:00] VITALS: PULSE 68; RESP 16; O2SAT 97
[2025-03-18] VITALS: BP 119/69; PULSE 67; RESP 18; TEMP 36.3; O2SAT 98
[2025-03-18 05:23] LABS: Basophils Absolute Auto 0.04 K/mm3 (0.00-0.10); Basophils Percent Auto 0.6 % (0.0-1.0); Hematocrit 34.6 % (35.0-49.0); Hemoglobin 11.4 g/dL (12.0-15.0); Immature Granulocyte Absolute 0.01 K/mm3 (0.00-0.00); Immature Granulocyte Percent A 0.1 % (0.0-0.0); Lymphocytes Absolute Auto 2.46 K/mm3 (1.10-4.50); Lymphocytes Percent Auto 36.8 % (18.0-42.0); Mean Corpuscular HGB Conc 32.9 g/dL (32-36); Mean Corpuscular Volume 91.1 fL (78.0-102.0); Mean Platelet Volume 9.3 fl (9.2-11.8); Monocytes Absolute Auto 0.53 K/mm3 (0.10-0.90); Monocytes Percent Auto 7.9 % (2.0-11.0); Neutrophils Absolute Auto 3.44 K/mm3 (1.70-7.20); Neutrophils Percent Auto 51.6 % (50.0-70.0); Platelet Count Result 228 K/mm3 (150-420); Red Cell Distribution Width 11.4 % (11.6-14.4); White Blood Count 6.7 K/mm3 (4.8-10.8)
[2025-03-18 05:35] LABS: Alanine Aminotransferase 11 U/L (6-35); Albumin Level 3.1 g/dL (3.5-5.1); Alkaline Phosphatase 54 U/L (38-126); Anion Gap -2 mmol/L (4-12); Aspartate Amino Transferase 16 U/L (14-36); Bilirubin,Total 0.3 mg/dL (0.2-1.3); Blood Urea Nitrogen 4 mg/dL (7-17); Calcium 8.3 mg/dL (8.4-10.2); Carbon Dioxide 26 mmol/L (22-30); Chloride 113 mmol/L (98-107); Estimated CRCL calculation 77 ml/min; Estimated Glomerular Filt Rate > 60; Glucose 90 mg/dL (65-110); Magnesium 1.8 mg/dL (1.6-2.3); Osmolality Calculated 280 mOsm/kg (285-295); Sodium 137 mmol/L (137-145); Total Protein 5.4 g/dL (6.3-8.2)
[2025-03-18] MEDS: ONDANSETRON INJ 4 MG/2 ML VIAL IV PUSH (07:34)
[2025-03-18 08:00] VITALS: BP 120/69; PULSE 70; RESP 14; TEMP 36.8; O2SAT 98
[2025-03-18] MEDS: SACCHAROMYCES BOULARDII 250 MG CAPSULE PO (09:38)
[2025-03-18] MEDS: FLUoxetine HCL 20 MG CAPSULE 40 MG PO (09:38)
[2025-03-18] MEDS: PANTOPRAZOLE 40 MG TABLET PO (09:38)
[2025-03-18] MEDS: FIDAXOMICIN 200 MG TABLET PO (09:38)
[2025-03-18] MEDS: GABAPENTIN 300 MG CAPSULE PO (09:39)
[2025-03-18] MEDS: HYDROcodone/acetaminophen (*CRX) 5-325 MG TABLET 1 TAB PO ×2 (09:43→13:34)
--- NOTE | 2025-03-18 10:51 | P.DS_ITS ---
DS: Admitting Diagnosis Discharge Date 03/18/2025 Admitting Diagnosis C diff colitis DS: Discharge Diagnosis Discharge Diagnosis (1) Generalized anxiety disorder: Onset Date: 06/24/11 Code(s): F41.1 - Generalized anxiety disorder Status: Acute DS: Summary Hospital Course Reason for hospitalization: C diff colitis Hospital Course: Admission: Patient is a 44-year-old female who presented to the emergency department with complaints of abdominal pain and diarrhea with some nausea able to tolerate oral intake. patient reports she does have a history of C diff which she was diagnosed back in August following a round of antibiotic therapy states this feels the same as previous infection. patient reports symptoms began about 3 days prior to arrival and she has had continuous multiple episodes of diarrhea a few hours prior to arriving to the emergency department she had severe abdominal cramping was unable to tolerate any oral intake. patient denied any chest pain, shortness breath, fever, chills, dizziness, or any recent sick contacts. patient did report she was treated with oral vancomycin for previous C diff infection. In the ED: in the emergency department patient tested positive for C diff infection in CT abdomen was showing colitis, other labs unremarkable and vital stable however she was still unable to tolerate any oral intake that time she was admitted for further evaluation and treatment of C diff colitis. Hospital Course: Patient was admitted to the medical unit placed on IV fluids for any dehydration, pain management, antiemetics had received 1 dose oral vanc in the emergency department and was transitioned to oral Dificid. patient still reporting abdominal pain and was unable to tolerate her breakfast this morning will continue to advance diet as tolerated and continue with pain management. continue to advance patient's diet was able to tolerate small frequent meals and diarrhea was improving. patient remained afebrile during her hospitalization with normal WBCs labs were evaluated and unremarkable electrolytes at desired ranges. We had initially started patient on Dificid however due to insurance authorization it is too expensive so patient was discharged home on vancomycin pulse taper I recommended patient requests referral from primary to follow up with GI outpatient in 8 to 6 weeks once infectious process has resolved. Status at Discharge Functional status at discharge: independent ambulation Overall status at discharge: patient is progressing back to baseline Time Spent with Patient Time attestation: Total time spent providing and/or coordinating discharge services: Time spent: Greater than 30 minutes Exam Const: General: comfortable and no acute distress HENMT: Face/Nose/Sinus: Normal nares present Mouth: Yes moist mucous membranes Eyes: General: appearance normal, both eyes and all related structures Sclera: sclerae normal Pupils: Equal, round and reactive pupils present Neck: Neck: supple and no JVD Resp: Effort & Inspection: normal respiratory effort Auscultation: clear to auscultation bilaterally Cardio: Rate: regular rate Rhythm: regular rhythm GI: Auscultation: normal bowel sounds Skin: General skin exam: normal color and no rashes or lesions noted Wounds: no wounds Neuro: General: gait normal Cranial nerves: Yes Equal, round and reactive pupils present Speech: normal speech Motor exam (neuro): 5/5 motor strength present throughout Extrem: General: normal to inspection Psych: Mental Status: mental status grossly normal Affect: normal affect DS: Data Data Completed and Pending Labs on day of discharge: Labs from last 24 hours 03/18/25 05:17 WBC 6.7 RBC 3.80 L Hgb 11.4 L Hct 34.6 L MCV 91.1 MCH 30.0 MCHC 32.9 RDW 11.4 L Plt Count 228 MPV 9.3 Immature Gran % (Auto) 0.1 H Neut % (Auto) 51.6 Lymph % (Auto) 36.8 [place] % (Auto) 7.9 Eos % (Auto) 3.0 Baso % (Auto) 0.6 Lymph # (Auto) 2.46 [place] # (Auto) 0.53 Eos # (Auto) 0.20 Baso # (Auto) 0.04 Abs Immat Gran (auto) 0.01 H Absolute Neuts (auto) 3.44 Absolute Nucleated RBC 0.00 Nucleated RBC % 0.0 Sodium 137 Potassium 4.0 Chloride 113 H Carbon Dioxide 26 Anion Gap -2 L BUN 4 L Creatinine 0.68 L Estim Creat Clear Calc 77 Estimated GFR > 60 Glucose 90 Calculated Osmolality 280 L Calcium 8.3 L Magnesium 1.8 Total Bilirubin 0.3 AST 16 ALT 11 Alkaline Phosphatase 54 Total Protein 5.4 L Albumin 3.1 L Imaging Radiologist's impression: CT of the Abdomen and Pelvis: Indication: Abdominal pain Technique: 2.5 mm axial scans were obtained through the abdomen and pelvis following intravenous administration of 100 cc of Omnipaque 350. Dose reduction technique was used on this scan by utilizing automated exposure control and iterative reconstruction technique. The dose-length product (DLP) was 195.10 mGy-cm. COMPARISON: 08/04/2022 Findings: Scans through the lung bases are unremarkable. The liver, spleen, pancreas, gallbladder, adrenals and kidneys are within normal limits. No evidence of aortic aneurysm. No lymphadenopathy. Question mild diffuse large bowel wall thickening versus underdistention. No bowel obstruction. No abscess or free air. Images through the pelvis were performed. Urinary bladder unremarkable. No pelvic mass seen. No ascites. Impression: Questionable mild diffuse large bowel wall thickening versus underdistention. Correlate for any possibility of infectious/inflammatory colitis. Discharge Plan Discharge Attending physician on discharge: Anthony Rodriguez Consulting providers: Nona Small Discharging Clinician: Nona Small Anticipated Discharge Date/Time: 03/18/25 10:48 Patient Disposition: Home Activity: as tolerated Diet: as tolerated and other - see discharge instructions Discharge Instructions: 1). C-Diff colitis * I have prescribed antibiotic therapy please take as indicated incomplete even if feeling better * advance diet as tolerated recommend frequent small meals avoid spicy or fried foods * encourage hydration * please do not use Imodium for diarrhea this is allowing the infection to clear * recommend requesting a referral to post office manager for colonoscopy 6-8 weeks after infectious process How can you care for yourself at home? ? Keep track of any new symptoms or changes in your symptoms. ? Rest until you feel better. ? Be safe with medicines. Take your medicines exactly as prescribed. Call your doctor if you think you are having a problem with your medicine. ? Do not drive after taking a prescription pain medicine. ? Ensure to follow-up with primary care physician as indicated and provide updated medication list provided to you at discharge. When should you call for help? Call 911 anytime you think you may need emergency care. For example, call if: ? You passed out (lost consciousness). Call your doctor now or seek immediate medical care if: ? You have new symptoms like fever, difficulty breathing, Chest pain, vomiting, or rash. ? You have new or different pain. ? You are confused and are having trouble thinking clearly. ? Your symptoms are getting worse. Watch closely for changes in your health, and be sure to contact your doctor if: ? You do not get better as expected. Patient Instructions: Antibiotic Form, C. Diff (Clostridioides Difficile) Infection (DC), Colitis (ED) Patient Language: Jamaican Stand Alone Forms: General Discharge Information Follow-up/Referrals: Brenda Claudio APRN [Primary Care Provider] - 2 weeks Discharge Medications: New hydrocodone-acetaminophen 5-325 mg tablet 1 tablet PO Q8H PRN (Reason: pain) Qty: 10 0RF pantoprazole 40 mg Tablet,Delayed Release (Dr/Ec) 40 mg PO QAM Qty: 30 0RF Saccharomyces boulardii [Florastor] 250 mg Capsule 250 mg PO TID Qty: 90 0RF vancomycin 125 mg capsule 125 mg PO DIRECTED Qty: 70 0RF Rx Instructions: take 125 mg 4 times per day for 10 days; 2 times per day for 7 days; once daily for 7 days; once every 2-3 days for 2-8 weeks Continued ondansetron 8 mg tablet,disintegrating See Rx Instructions .ROUTE .COMPLEX Qty: 30 0RF Dose Instruction: 8 MG ORALLY EVERY 8 HOURS NEEDED FOR NAUSEA AND VOMITING Rx Instructions: 8 MG ORALLY EVERY 8 HOURS NEEDED FOR NAUSEA AND VOMITING fluoxetine 20 mg capsule 40 mg PO DAILY 90 Days Qty: 180 1RF gabapentin 600 mg tablet See Rx Instructions .ROUTE .COMPLEX Qty: 180 0RF Dose Instruction: TAKE ONE TABLET BY MOUTH TWICE A DAY Rx Instructions: TAKE ONE TABLET BY MOUTH TWICE A DAY Date of admission: 03/16/25 14:41 Primary Care Provider: Brenda Claudio Admitting Provider: Anthony Rodriguez Attending physician on admission: Anthony Rodriguez Condition: Stable Quality VTE Prophylaxis VTE prophylaxis: pharmacologic ordered -Patient's previous records reviewed on admission -ER notes reviewed in detail on admission -discussed all findings and current treatment plan with patient/Family/POA -Consultations reviewed for recommendations -Patient's disposition for safe discharge discussed with foster care case manager Dictation performed by [employer] direct speech recognition software, therefore administrative hearing officer variants and typographical errors may occur. Hospitalist MIPS Heart Failure (Exclusion) Patient has history of Heart Transplant or Left Ventricular Assistive Device?: No IF YES, STOP HERE Heart Failure (Qualifier) Patient has current or prior documentation of LVEF less than or equal to 40%, or mod/servere depressed LVSF?: No IF NO, STOP HERE
--- NOTE | 2025-03-18 14:00 | PC.NURSE ---
Pt discharged to home. VSS. Discharge teaching done. Medication teaching done. Pt verbalized understanding of instructions, medications and follow up appointments.
== END 2025-03-18 13:45 | disposition home or self-care (01) ==
LOC: CHSED 14:43 → CHS2ND 15:04
PROVIDERS: Nurse Practitioner Family; Admitting Provider Internal Medicine; Emergency Provider Family Medicine; PCP Nurse Practitioner Family; Visit Provider Internal Medicine
DX: A04.72 Enterocolitis due to Clostridium difficile, not specified as recurrent (principal); F41.1 Generalized anxiety disorder; J45.909 Unspecified asthma, uncomplicated; F17.290 Nicotine dependence, other tobacco product, uncomplicated; Z79.899 Other long term (current) drug therapy; Z86.16 Personal history of COVID-19; Z86.19 Personal history of other infectious and parasitic diseases
CPT/HCPCS: 36415; 74177; 80053; 81003; 83605; 83690; 83735; 84443; 85025; 86140; 87493; 96361; 96374; 96375; 96376; 99285; A9270; G0378; G0379; J1171; J1200; J2270; J2405; J7030; J7120; Q9967

== ENCOUNTER 2025-03-19 04:42 | Emergency (ER) | payer OTHER, SELFPAY ==
[2025-03-19 04:42] VITALS: BP 131/90; PULSE 79; RESP 18; TEMP 36.8; O2SAT 99
--- NOTE | 2025-03-19 04:55 | ED.HA ---
HPI - Headache General Chief Complaint: Headache Stated Complaint: headache Time Seen by Provider: 03/19/25 04:49 Source: patient Mode of arrival: EMS Limitations: no limitations History of Present Illness HPI Narrative: This is a 44-year-old female, with history of migraines and recent hospitalization for C diff, presents to the emergency department complaining of headache. She describes the headache as pressure-like frontal without radiation associated weakness, numbness or change/ loss of vision /hearing. If is associated with photophobia and phonophobia. She states she feels somewhat nauseous but is unsure of this is related to her recent diagnosis of C diff verses migraine. This headache is slightly different from her usual migraines that are felt behind the eyes. She has no other complaints at this time. Related Data Allergies Allergy/AdvReac Type Severity Reaction Status Date / Time valproic acid AdvReac Unknown Unknown Verified 03/19/25 04:58 Review of Systems Review of Systems: All systems reviewed & are unremarkable except as noted in HPI and below PMFSH Past Medical History Medical History C. difficile diarrhea Toe pain (11/12/13) Routine gynecological examination (05/09/12) Neck pain (01/27/14) Dysuria (10/04/22) Back pain (06/28/12) Acute upper respiratory infection (02/04/14) Exercise-induced asthma COVID-19 Surgical History Surgical History H/O arthroscopic knee surgery R knee - dislocation, 2001 H/O knee surgery H/O: hysterectomy Family History Family History Father Acute myocardial infarction, Onset Age: 59 Cerebrovascular accident, Onset Age: 62 Brain malignant neoplasm, Onset Age: 60 Stage IV cancer, metastasize to lungs Social History Social History Smoking packs per day: 0.5 Smoking cigarettes per day: 10.0 Years smoked: 30 Smoking pack-years: 15.00 Smoking status: Current every day smoker Tobacco type: e-cigarettes/vaping Second hand tobacco smoke exposure: No Smoking end date: 07/30/22 Alcohol intake: current Drinks per week: 1 Alcohol use details: 6 beers 3 days a week, no alcohol in the last 30 days Substance use: current Substance use type: marijuana Other substance usage details: smoke at nighttime Last use: 08/30/22 Do You Feel Safe in your Home?: Yes Lack of Transportation: No Lack of Food: Never True Current Housing: I Have Housing Concerned About Future Housing: No Difficulty Paying Gas/Electric Bills: No Difficulty Paying for Meds: No Currently Unemployed: No Education: High School Diploma/GED Difficulty w/ Childcare or Family Care: No Spiritual care concerns: No Exam Narrative: GENERAL: Well-developed, well-nourished, and in no acute distress. Appears uncomfortable HEAD: Normocephalic, atraumatic. EYES: PERRLA and EOMI. ENT: Nares clear, no rhinorrhea or epistaxis. Mucous membranes moist. Oropharynx without tonsillar hypertrophy exudate or other lesions. CHEST: Clear to auscultation. No respiratory distress. No wheezes rales or rhonchi HEART: Regular rate and rhythm. No murmur heard. Normal peripheral pulses. ABDOMEN: Soft, nontender, nondistended, normal active bowel sounds. EXTREMITIES: Normal range of motion. No edema. SKIN: Warm, dry, no rash. NEURO: Alert and oriented x3. No focal deficit. strength 5/5 in all extremities, sensation intact bilaterally no noted ataxia PSYCH: Normal mood and affect. Course Course Emergency Course: 06:36 - On re-evaluation, patient is sleeping in bed without difficulty. On waking, she states her headache is improved. Will discharge with recommendation for primary care follow-up. I discussed the findings and recommendations with The patient. Discussed return and emergency precautions including signs/symptoms of intracranial hemorrhage or focal neural deficit. The patient voiced understanding and agreement with the plan. All questions answered to her satisfaction. Vital Signs Vital signs: Vital Signs Temperature 98.2 F 03/19/25 04:42 Pulse Rate 79 03/19/25 04:42 Respiratory Rate 18 03/19/25 04:42 Blood Pressure 131/90 03/19/25 04:42 Pulse Oximetry 99 03/19/25 04:42 Oxygen Delivery Room Air 03/19/25 04:42 Temperature 98.2 F 03/19/25 04:42 Pulse Rate 79 03/19/25 04:42 Respiratory Rate 18 03/19/25 04:42 Blood Pressure 131/90 03/19/25 04:42 Pulse Oximetry 99 03/19/25 04:42 Oxygen Delivery Room Air 03/19/25 04:42 MDM - Headache MDM Narrative Medical decision making narrative: plan: pain control IV fluids, antiemetics, reassess Differential Diagnosis Differential diagnosis: Likely migraine, tension headache and other ( Dehydration, other) Discharge Plan Discharge Clinical Impression: Migraine Qualifiers: Migraine type: unspecified Status migrainosus presence: without status migrainosus Intractability: not intractable Qualified Code(s): G43.909 - Migraine, unspecified, not intractable, without status migrainosus Patient Disposition: Home Condition: Stable Instructions: Antibiotic Form, Migraine Headache (ED) Additional Instructions: You were seen in the emergency department. Your given IV fluids, pain medications and nausea medications. I recommend following up with your primary care doctor and hydrating regularly. If you develop change/loss of vision weakness/ numbness loss of consciousness persistent vomiting, or if you have other emergent concerns for life, limb, or eyesight, return to the emergency department. Patient Language: [place] Islander Prescriptions: No Action hydrocodone-acetaminophen 5-325 mg tablet 1 tablet PO Q8H PRN (Reason: pain) Qty: 10 0RF pantoprazole 40 mg Tablet,Delayed Release (Dr/Ec) 40 mg PO QAM Qty: 30 0RF Saccharomyces boulardii [Florastor] 250 mg Capsule 250 mg PO TID Qty: 90 0RF vancomycin 125 mg capsule 125 mg PO DIRECTED Qty: 70 0RF Rx Instructions: take 125 mg 4 times per day for 10 days; 2 times per day for 7 days; once daily for 7 days; once every 2-3 days for 2-8 weeks ondansetron 8 mg tablet,disintegrating See Rx Instructions .ROUTE .COMPLEX Qty: 30 0RF Dose Instruction: 8 MG ORALLY EVERY 8 HOURS NEEDED FOR NAUSEA AND VOMITING Rx Instructions: 8 MG ORALLY EVERY 8 HOURS NEEDED FOR NAUSEA AND VOMITING fluoxetine 20 mg capsule 40 mg PO DAILY 90 Days Qty: 180 1RF gabapentin 600 mg tablet See Rx Instructions .ROUTE .COMPLEX Qty: 180 0RF Dose Instruction: TAKE ONE TABLET BY MOUTH TWICE A DAY Rx Instructions: TAKE ONE TABLET BY MOUTH TWICE A DAY Follow-up/Referrals: Brenda Claudio APRN [Primary Care Provider] - 2 Weeks Time of Disposition: 06:38
[2025-03-19] MEDS: SODIUM CHLORIDE 0.9% IV 1,000 ML 999 ML IV CONT (05:05)
[2025-03-19] MEDS: diphenhydrAMINE HCl INJ 50 MG/ML VIAL 25 MG IV PUSH (05:19)
[2025-03-19] MEDS: KETOROLAC 30 MG/ML VIAL (*BKC) IV PUSH (05:19)
[2025-03-19] MEDS: PROCHLORPERAZINE EDISYLATE 10 MG/2 ML VIAL IV PUSH (05:20)
--- NOTE | 2025-03-19 06:04 | PC.NURSE ---
patient checked, IVF infusing, nearing completion and patient reports to RN she is feeling improved. denies current needs. RN monitoring.
--- NOTE | 2025-03-19 06:35 | PC.NURSE ---
Dr. Wesley at patient bedside at this time reassessing and plan of care.
[2025-03-19 06:44] VITALS: BP 131/84; PULSE 77; RESP 18; TEMP 37.2; O2SAT 98
--- NOTE | 2025-03-20 09:56 | PC.NURSE ---
Discharge call back made. No answer on phone and unable to leave message.
== END 2025-03-19 06:45 | disposition home or self-care (01) ==
PROVIDERS: Emergency Provider Preventive Medicine Aerospace Medicine; PCP Nurse Practitioner Family
DX: G43.909 Migraine, unspecified, not intractable, without status migrainosus (principal); F17.210 Nicotine dependence, cigarettes, uncomplicated
CPT/HCPCS: 96361; 96374; 96375; 99284; J0780; J1200; J1885; J7030

== ENCOUNTER 2025-04-16 00:57 | Day surgery (SDC) | payer OTHER, SELFPAY ==
[2025-04-14 12:29] VITALS: BMI 18.8
--- OUTSIDE RECORDS SUMMARY | 2025-04-16 01:00 | XMS_ITS | Clinical Summary ---
Author Organization [facility] Address [address] [place] [address] Phone Care Team Providers Care Lockstitch Coat Joiner Name Role Phone Bakari Charles MD Primary Care Provider Marlon NUNEZ MD, Racheal Unavailable [phone] Allergies No known active allergies Medications HYDROcodone-acetam inophen (NORCO) 5-325 MG Tablet 08/09/2022 Act ida FLUoxetine (PROZAC) 40 MG Capsule 08/09/2022 Active gabapentin (NEURONTIN) 600 MG Tablet 08/13/2022 Active Active Problems No known active problems Social History Tobacco Use Types Packs/Day Years Used Date Smoking Tobacco: Some Days Cigarettes Smokeless Tobacco: Never Tobacco Cessation:Ready to Q uit: Not Asked; Counseling Given: No Alcohol Use Standard Drinks/Week Comments Not Currently 0 (1 standard drink = 0.6 oz pur e alcohol) 3x a week Comments Unknown Sex and Gender Information Value Date Recorded Sex Assigned at Not on file Legal Sex Female 11:09 AM NURSE PRACTITIONER ADULT Gender Identity Not on file Sexual Orientation Not on file Last Filed Vital Signs Vital Sign Reading Time Taken Comments Blood Pressure 92/60 08/29/2022 8:37 AM NURSE PRACTITIONER ADULT Pulse 94 08/29/2022 8:37 AM NURSE PRACTITIONER ADULT Temperature 36.8 C (98.2 F) 08/29/2022 8:37 AM NURSE PRACTITIONER ADULT Respiratory Rate 20 08/29/2022 8:37 AM NURSE PRACTITIONER ADULT Oxygen Saturation 98% 08/29/2022 8:37 AM NURSE PRACTITIONER ADULT Inhaled Oxygen Concentration - - Weight - - Height 170.2 cm (5' 7) 08/29/2022 8:37 AM NURSE PRACTITIONER ADULT Body Mass Index - - Plan of Treatment Health Maintenance Due Date Last Done Comments Hepatitis C Virus (HCV) Screening 1978 TdaP Immunization 1978 Hepatitis B Immunization (1 of 3 - 19+ 3-dose series) 1997 Pap Smear 1999 Cervical Cancer Screening (CCS) 2008 HPV/Cotest 2008 Cologuard 2023 Colonoscopy 2023 Colorectal Cancer Screening 2023 Immunochemical Fecal Occult Blood 2023 SARS-COV-2 Immunization ( season) 2024 03/08/2021, 02/08/2021 Influenza Immunization (#1) 2025 Respiratory Syncytial Virus (RSV) Immunization (Adult) (1 - 1-dose 75+ series) 2053 DTaP/Tdap/Td Immunization Discontinued 2017, 01/13/1993, 03/01/1984, Additional history exists Human Papillomavirus (HPV) Immunization Aged Out No longer eligible based on patient's age to complete this topic Meningococcal Immunization (ACWY) Aged Out No longer eligible based on patient's age to complete this topic Pneumococcal Immunization Combined Aged Out No longer eligible based on patient's age to complete this topic Rotavirus Immunization Aged Out No lo nger eligible based on patient's age to complete this topic Insurance MEDICARE C [place] Care Teams Lockstitch Coat Joiner Relationship Specialty Start Date End Date Bakari Charles MD [address] [address] PCP - General Family Medicine 08/17/22 Racheal Mason III, MD [address] [place] [address] Consulting Physician Urology 10/02/23
--- OUTSIDE RECORDS SUMMARY | 2025-04-16 01:00 | XMS_ITS | Patient Health Record ---
Author Organization [facility] Address [address] [place] [address] Care Team Providers Care Warper Creeler Name Role Phone SYDNI RDZ Unavailable [phone] Reason For Referral No Information Problems Problem Type SNOMED Code ICD Code Onset Dates Problem Status W/U Status Risk Notes Problem Disorder of the peripheral nervous system (95565534) Other disorders of peripheral nervous system (G64) 7 Active confirmed Problem Plantar fascial fibromatosis (19010569) Plantar fascial fibromatosis (M72.2) 7 Active confirmed Problem Achilles bursitis (908591308) Achilles tendinitis, right leg (M76.61) 7 Active confirmed Problem Tibialis tendinitis (79142997) Posterior tibial tendinitis, right leg (M76.821) 7 Active confirmed Problem Closed fracture of talus (31962048) Nondisplaced fracture of neck of right talus, initial encounter for closed fracture (S92.114A) 7 Active confirmed Plan Of Treatment No Information Insurance Providers Payer Name Payer Address Payer Phone Subscriber Number Group Number Insured Name Patient Relationship to Insured Coverage Start Date Coverage End Date [place] [employer] [address] [address] [place] [address] [id number] KO WAITE Self - patient is the insured
--- OUTSIDE RECORDS SUMMARY | 2025-04-16 01:00 | XMS_ITS ---
Author Organization Unknown Plan of Treatment Description Planned Activity Planned Timing [facility] is a provider organization who partners directly with Health Plans and provides integrated primary care, behavioral health, and social media manager for an attributed population Letter encounter to patientTelephone encounter Mar 20, 2025Jul 2024 Patient Care team information Name Category Status Period Participants - - Proposed period not known -
--- OUTSIDE RECORDS SUMMARY | 2025-04-16 01:00 | XMS_ITS | Clinical Summary ---
Author Organization [facility] Address [address] [place] [address] Care Team Providers Care Square Dance Caller Name Role Phone Bakari Charles MD Primary Care Provider [phone] Allergies No known active allergies Medications pantoprazole 40 MG packet Take 1 packet by mouth daily. 30 tablet 07/27/2020 Active Family History Medical History Relation Comments Heart Disease Father Relation Status Comments Father Social History Tobacco Use Types Packs/Day Years Used Date Smoking Tobacco: Every Day Cigarettes Tobacco Cessation:Ready to Q uit: No; Counseling Given: No Alcohol Use Standard Drinks/Week Comments Yes 3 (1 standard drink = 0.6 oz pur e alcohol) Comments Unknown Sex and Gender Information Value Date Recorded Sex Assigned at Not on file Legal Sex Female 11:34 PM FIXED INCOME TRADING VICE PRESIDENT Gender Identity Not on file Sexual Orientation Not on file Last Filed Vital Signs Vital Sign Reading Time Taken Comments Blood Pressure 117/75 07/27/2020 7:30 PM FIXED INCOME TRADING VICE PRESIDENT Pulse 79 07/27/2020 7:30 PM FIXED INCOME TRADING VICE PRESIDENT Temperature 36.8 C (98.3 F) 07/27/2020 3:39 PM FIXED INCOME TRADING VICE PRESIDENT Respiratory Rate 10 07/27/2020 7:30 PM FIXED INCOME TRADING VICE PRESIDENT Oxygen Saturation 97% 07/27/2020 7:30 PM FIXED INCOME TRADING VICE PRESIDENT Inhaled Oxygen Concentration - - Weight 59 kg (130 lb) 07/27/2020 3:39 PM FIXED INCOME TRADING VICE PRESIDENT Height 170.2 cm (5' 7) 07/27/2020 3:39 PM FIXED INCOME TRADING VICE PRESIDENT Body Mass Index 20.36 07/27/2020 3:39 PM FIXED INCOME TRADING VICE PRESIDENT Plan of Treatment Health Maintenance Due Date Last Done Comments Colorectal Cancer Screening Colonoscopy (10 Years) 1978 Annual Physical 1981 Hepatitis C 1996 DTaP, Tdap and Td Vaccines (1 - Tdap) 1997 03/01/1984, 05/09/1980, 04/27/1979, Additional history exists Hepatitis B Vaccines (1 of 3 - 19+ 3-dose series) 1997 Pneumococcal Vaccine: Pediatrics (0 to 5 Years) and At-Risk Patients (6 to 49 Years) (1 of 2 - PCV) 1997 Mammogram Screening 2018 COVID-19 Vaccine ( - 2023- season) 2024 Meningococcal B Vaccine Aged Out No l onger eligible based on patient's age to complete this topic Meningococcal Vaccine Aged Out No mao asa eligible based on patient's age to complete this topic RSV Immunizations Under 20 Months Aged Out No longer eligible based on patient's age to complete this topic [place] [address] [place] [address] [place] Care Teams Square Dance Caller Relationship Specialty Start Date End Date Bakari Charles MD [address] [place] [address] PCP - General FAMILY PRACTICE 03/27/19
--- OUTSIDE RECORDS SUMMARY | 2025-04-16 01:00 | XMS_ITS | Encounter Summary ---
Author Organization [facility] Address [address] [place] [address] Care Team Providers Care Federal Agent Name Role Phone Bakari Charles MD Primary Care Provider [phone] Encounter Details Date Type Department Care Team (Late st Contact Info) Description 03/02/2019 Abstract SFL CONVERSION [address] [place] [address] , Generic Conversion, Social History Tobacco Use Types Packs/Day Years Used Date Smoking Tobacco: Never Assessed Comments Unknown Sex and Gender Information Value Date Recorded Sex Assigned at Not on file Legal Sex Female 11:34 PM PROPERTY MASTER Gender Identity Not on file Sexual Orientation Not on file documented as of this encounter Plan of Treatment Not on file documented as of this encounter Visit Diagnoses Not on filedocumented in this encounter Care Teams Federal Agent Relationship Specialty Start Date End Date Bakari Charles MD [address] [place] [id number] PCP - General FAMILY PRACTICE 03/27/19 documented as of this encounter
[2025-04-16 12:39] VITALS: BP 99/61; PULSE 77; RESP 18; TEMP 36.6; O2SAT 100
--- NOTE | 2025-04-16 12:39 | SUR.PREOP ---
Pt states she left her cell phone at home and does not have a phone number for her shag truck driver. Per pt's request message left with pt's daughter to call us with contact number for shag truck driver.
[2025-04-16] MEDS: LACTATED RINGERS 1,000 ML 150 ML IV CONT (12:58)
[2025-04-16] MEDS: SIMETHICONE ORAL SUSPENSION 20 MG/0.3 ML 30 ML BOTTLE 1.8 ML PO (13:03)
--- NOTE | 2025-04-16 13:24 | P.PNAN_ITS ---
Anes - Initial Pre Proc Eval Procedure: Operation Date: 04/16/25 13:45 Proposed Procedures p EGD & Diagnostic Colonoscopy - Rodriguez Hairston MD Date/Time: 04/16/25 13:24 Surgeon: Rodriguez Hairston MD Pre Op Diagnosis: Enterocolitis due to Clostridium difficile, not sp Patient Data Age: 44 Gender: F Height: 1.7 m Weight: 52.5 kg Last Vital Signs Temp 36.6 C 04/16/25 12:39 Pulse 77 04/16/25 12:39 Resp 18 04/16/25 12:39 BP 99/61 L 04/16/25 12:39 Pulse Ox 100 04/16/25 12:39 O2 Del Method Room Air 04/16/25 12:39 Allergies Allergy/AdvReac Type Severity Reaction Status Date / Time No Known Allergies Allergy Verified 04/16/25 12:33 Home Medications ?Medication ?Instructions ?Recorded ?Confirmed ?Type fluoxetine 20 mg capsule 40 mg (2 x 20 mg) PO DAILY 3 09/02/24 04/14/25 Rx months #180 caps hydrocodone 5 mg-acetaminophen 325 1 tablet PO Q8H PRN pain #10 tabs 03/16/25 04/14/25 Rx mg tablet ondansetron 8 mg disintegrating See Rx Instructions .Route 03/18/25 04/14/25 Rx tablet .COMPLEX #30 tabs pantoprazole 40 mg tablet,delayed 40 mg PO QAM #30 tabs 03/18/25 04/14/25 Rx release gabapentin 800 mg tablet 800 mg PO BID 3 months #180 tabs 03/21/25 04/14/25 Rx Patient hx anesthesia problems: none Family hx anesthesia problems: none Results Review: All pre-operative results and documents have been reviewed as part of the pre- operative evaluation. [facility] Past Medical History Medical History Tobacco use Constipation Nausea RUQ pain C. difficile diarrhea Toe pain (11/12/13) Routine gynecological examination (05/09/12) Neck pain (01/27/14) Dysuria (10/04/22) Back pain (06/28/12) Acute upper respiratory infection (02/04/14) Exercise-induced asthma COVID-19 Surgical History Surgical History H/O arthroscopic knee surgery R knee - dislocation, 2001 H/O knee surgery H/O: hysterectomy Family History Family History Father Acute myocardial infarction, Onset Age: 59 Cerebrovascular accident, Onset Age: 62 Brain malignant neoplasm, Onset Age: 60 Stage IV cancer, metastasize to lungs Social History Social History Smoking packs per day: 1 Smoking cigarettes per day: 20.0 Years smoked: 30 Smoking pack-years: 30.00 Smoking status: Former smoker Tobacco type: e-cigarettes/vaping Second hand tobacco smoke exposure: No Smoking end date: 07/30/22 Alcohol intake: current Drinks per week: 8 Alcohol use details: Beer Substance use: current Substance use type: marijuana Other substance usage details: Daily marijuana use Last use: 08/30/22 Do You Feel Safe in your Home?: Yes Lack of Transportation: No Lack of Food: Never True Current Housing: I Have Housing Concerned About Future Housing: No Difficulty Paying Gas/Electric Bills: No Difficulty Paying for Meds: No Currently Unemployed: No Education: High School Diploma/GED Difficulty w/ Childcare or Family Care: No Living arrangements: alone Spiritual care concerns: No Anes - Eval Final PreProcedure Day of Procedure 04/16/25 13:24 Patient weight: normal Heart: regular rate and rhythm Lungs: decreased breath sounds Airway: Mallampati scale class II Neurological: alert and oriented Last oral intake: >/= 8 hours ASA classification: III Emergent: no Anesthetic plan: proceed Anesthesia type and monitoring: general GIVS and standard monitoring Results Review: All pre-operative results and documents have been reviewed as part of the pre- operative evaluation. Informed Consent: The patient's anesthetic plan and its attendant risks and benefits were discussed with the patient/family/POA. Questions were solicited and answers provided to the satisfaction of the patient/family/POA.
--- NOTE | 2025-04-16 13:46 | SUR.PREOP ---
Dr. Hairston running 45 min behind schedule. Pt updated on delay.
--- NOTE | 2025-04-16 15:09 | PM.IMHP ---
H&P: HPI History of Present Illness Date/Time: 04/16/25 15:09 Chief Complaint: GERD-dyspepsia Narrative: this patient has been suffering from poor appetite, fullness and epigastric discomfort for several weeks. This is coincidental with her recurrent C diff infection for which she was treated, the last time with a tapered regimen. she denies diarrhea at this moment, and she never had a colonoscopy or EGD. Review of Systems Review of Systems: All systems reviewed & are unremarkable except as noted in HPI and below PMFSH Past Medical History Medical History Tobacco use Constipation Nausea RUQ pain C. difficile diarrhea Toe pain (11/12/13) Routine gynecological examination (05/09/12) Neck pain (01/27/14) Dysuria (10/04/22) Back pain (06/28/12) Acute upper respiratory infection (02/04/14) Exercise-induced asthma COVID-19 Surgical History Surgical History H/O arthroscopic knee surgery R knee - dislocation, 2001 H/O knee surgery H/O: hysterectomy Family History Family History Father Acute myocardial infarction, Onset Age: 59 Cerebrovascular accident, Onset Age: 62 Brain malignant neoplasm, Onset Age: 60 Stage IV cancer, metastasize to lungs Social History Social History Smoking packs per day: 1 Smoking cigarettes per day: 20.0 Years smoked: 30 Smoking pack-years: 30.00 Smoking status: Former smoker Tobacco type: e-cigarettes/vaping Second hand tobacco smoke exposure: No Smoking end date: 07/30/22 Alcohol intake: current Drinks per week: 8 Alcohol use details: Beer Substance use: current Substance use type: marijuana Other substance usage details: Daily marijuana use Last use: 08/30/22 Do You Feel Safe in your Home?: Yes Lack of Transportation: No Lack of Food: Never True Current Housing: I Have Housing Concerned About Future Housing: No Difficulty Paying Gas/Electric Bills: No Difficulty Paying for Meds: No Currently Unemployed: No Education: High School Diploma/GED Difficulty w/ Childcare or Family Care: No Living arrangements: alone Spiritual care concerns: No Meds Home Medications and Allergies Home Medications ?Medication ?Instructions ?Recorded ?Confirmed ?Type fluoxetine 20 mg capsule 40 mg (2 x 20 mg) PO DAILY 3 09/02/24 04/14/25 Rx months #180 caps hydrocodone 5 mg-acetaminophen 325 1 tablet PO Q8H PRN pain #10 tabs 03/16/25 04/14/25 Rx mg tablet ondansetron 8 mg disintegrating See Rx Instructions .Route 03/18/25 04/14/25 Rx tablet .COMPLEX #30 tabs pantoprazole 40 mg tablet,delayed 40 mg PO QAM #30 tabs 03/18/25 04/14/25 Rx release gabapentin 800 mg tablet 800 mg PO BID 3 months #180 tabs 03/21/25 04/14/25 Rx Allergies Allergy/AdvReac Type Severity Reaction Status Date / Time No Known Allergies Allergy Verified 04/16/25 12:33 Vital Signs Vital Signs - 24 hr 04/16/25 12:39 Temperature 98 F Pulse Rate 77 Respiratory Rate 18 Blood Pressure 99/61 L Pulse Oximetry 100 Oxygen Delivery Room Air Exam Const: General: cooperative and healthy appearing Resp: Effort & Inspection: normal respiratory effort and able to speak in complete sentences Auscultation: clear to auscultation bilaterally Cardio: Rate: regular rate Rhythm: regular rhythm GI: Inspection: normal to inspection GI Palp: No No hepatosplenomegaly present Auscultation: normal bowel sounds Rectal Exam: deferred Skin: General skin exam: normal color Psych: Appearance: grossly normal Mental Status: mental status grossly normal Assessment and Plan Assessment and plan (1) Abdominal pain: Code(s): R10.9 - Unspecified abdominal pain Status: Acute Assessment and Plan: The patient is deemed a good candidate for the procedures. Consent signed. Will proceed. (2) Blood in stool: Code(s): K92.1 - Melena Status: Acute
--- NOTE | 2025-04-16 15:20 | SUR.OPER ---
EGD ended at 1517, colon began at 1523.
--- NOTE | 2025-04-16 15:24 | S_PTH ---
PATIENT: Jayla Chang LOC: [facility] U#:[id number] AGE/SX: 44/F ROOM: RE04/16/[address]: Rodriguez Hairston MD : 1980 BED: DIS: 04/16/2025 SPEC #: [id number] RECD: 04/17/25 07:22 STATUS: MIGUE REQ #: [id number] ARCHANA: 04/16/25 15:[address]: Rodriguez Hairston DEPT: [facility] Surgical RECD BY: Sweta Martínez ENTERED: 04/17/25 07:22 SP TYPE: Surgical OTHR DR: Brenda Claudio APRN Tissues: A - Gastric Biopsy B - Gastric Biopsy Procedures: Hematoxylin and Eosin Stain Gross and Microscopic Level 4
[2025-04-16 15:42] VITALS: BP 117/70; PULSE 56; RESP 15; O2SAT 100
[2025-04-16 15:52] VITALS: BP 124/70; PULSE 54; RESP 15; O2SAT 100
[2025-04-16 16:02] VITALS: BP 116/65; PULSE 60; RESP 19; O2SAT 100
== END 2025-04-16 16:15 | disposition home or self-care (01) ==
PROVIDERS: PCP Nurse Practitioner Family; Referring Provider Nurse Practitioner Family; Visit Provider Internal Medicine Gastroenterology
PROC: 0DJ08ZZ Inspection of Upper Intestinal Tract, Via Natural or Artificial Opening Endoscopic (ICD-10-PCS; CPT 45378; principal; 2025-04-16 13:45)
DX: K92.1 Melena (principal); J45.990 Exercise induced bronchospasm; F12.90 Cannabis use, unspecified, uncomplicated; Z79.891 Long term (current) use of opiate analgesic; Z98.890 Other specified postprocedural states; Z87.891 Personal history of nicotine dependence; Z80.8 Family history of malignant neoplasm of other organs or systems; Z80.1 Family history of malignant neoplasm of trachea, bronchus and lung; Z82.49 Family history of ischemic heart disease and other diseases of the circulatory system
CPT/HCPCS: 45378; 43239; 88305; J2003; J2704; J7120

== ENCOUNTER 2025-05-27 16:34 | Outpatient (CLI) | payer OTHER, SELFPAY ==
--- NOTE | ~2025-05-27 | XR_ITS ---
X-rays left foot Indication: Contusion Comparison: None Technique: 4 views left foot Findings/Impression: 1. No fracture or dislocation left foot. Reviewed, dictated and finalized at location R.
--- NOTE | ~2025-05-27 | XR_ITS ---
EXAMINATION: XR hand RT min 3V DATE: 05/27/2025 17:03 INDICATION: Confusion, right wrist TECHNIQUE: 3 images of the right hand were obtained. COMPARISON: None. FINDINGS: [ No significant degenerative change.] [ No radiographic evidence for an acute fracture or dislocation.] [ No radiopaque foreign body.] [ No sclerotic or destructive bone lesions.] Soft tissue swelling about the right wrist. IMPRESSION: 1. [ No acute bony abnormality identified.] Soft tissue swelling about the right wrist. If symptoms persist or worsen consider a short-term follow-up study or additional imaging for further assessment. Reviewed, dictated and finalized at location Q. IMPRESSION: 1. [ No acute bony abnormality identified.] Soft tissue swelling about the righ t wrist. If symptoms persist or worsen consider a short-term follow-up study or addition al imaging for further assessment.
[2025-05-27 16:54] LABS: Hematocrit 38.8 % (35.0-49.0); Hemoglobin 12.6 g/dL (12.0-15.0); Immature Granulocyte Percent A 0.6 % (0.0-0.0); Lymphocytes Absolute Auto 2.57 K/mm3 (1.10-4.50); Mean Corpuscular HGB Conc 32.5 g/dL (32-36); Mean Corpuscular Hemoglobin 30.0 pg (27.0-31.0); Mean Corpuscular Volume 92.4 fL (78.0-102.0); Nucleated Red Blood Cells Absolute Auto 0.00 K/mm3 (0.00-0.00); Nucleated Red Blood Cells Perc 0.0 % (0-0.0); Platelet Count Result 333 K/mm3 (150-420); Red Blood Count 4.20 M/mm3 (4.20-5.40); White Blood Count 10.9 K/mm3 (4.8-10.8)
[2025-05-27 17:10] LABS: Iron 54 ug/dL (37-170)
[2025-05-27 17:11] LABS: Alanine Aminotransferase 14 U/L (6-35); Albumin Level 4.2 g/dL (3.5-5.1); Alkaline Phosphatase 93 U/L (38-126); Anion Gap 7 mmol/L (4-12); Aspartate Amino Transferase 19 U/L (14-36); Bilirubin,Total 0.4 mg/dL (0.2-1.3); Blood Urea Nitrogen 9 mg/dL (7-17); Calcium 9.7 mg/dL (8.4-10.2); Carbon Dioxide 29 mmol/L (22-30); Chloride 105 mmol/L (98-107); Estimated Glomerular Filt Rate > 60; Glucose 93 mg/dL (65-110); Osmolality Calculated 290 mOsm/kg (285-295); Potassium 4.0 mmol/L (3.4-5.0); Sodium 141 mmol/L (137-145); Total Protein 6.7 g/dL (6.3-8.2)
[2025-05-27 17:14] LABS: Hemoglobin A1C 5.2 % (<5.7)
[2025-05-27 17:20] LABS: Percent Iron Saturation 18 % (20-50)
[2025-05-27 17:42] LABS: Thyroid Stimulating Hormone Reflex 1.170 uIU/mL (0.465-4.68)
[2025-05-27 18:03] LABS: Vitamin B12 242.0 pg/mL (239-931)
[2025-05-30 11:08] LABS: ANA by IFA Rfx Titer/Pattern Negative (.)
== END 2025-05-27 16:35 | disposition home or self-care (01) ==
PROVIDERS: PCP Nurse Practitioner Family; Visit Provider Nurse Practitioner Family
DX: Z00.00 Encounter for general adult medical examination without abnormal findings (principal); R53.82 Chronic fatigue, unspecified; S90.129A Contusion of unspecified lesser toe(s) without damage to nail, initial encounter; M25.431 Effusion, right wrist
CPT/HCPCS: 36415; 73130; 73630; 80053; 82306; 82607; 83036; 83540; 83550; 84443; 85025; 86038

== ENCOUNTER 2025-06-13 08:39 | Outpatient (CLI) | payer OTHER, SELFPAY ==
--- OUTSIDE RECORDS SUMMARY | 2025-06-13 08:41 | XMS_ITS | Clinical Summary ---
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 Gender Identity Not on file Sexual Orientation Not on file Last Filed Vital Signs Vital Sign Reading Time Taken Comments Blood Pressure 117/75 07/27/2020 7:30 PM CUSTOMER SALES SPECIALIST Pulse 79 07/27/2020 7:30 PM CUSTOMER SALES SPECIALIST Temperature 36.8 C (98.3 F) 07/27/2020 3:39 PM CUSTOMER SALES SPECIALIST Respiratory Rate 10 07/27/2020 7:30 PM CUSTOMER SALES SPECIALIST Oxygen Saturation 97% 07/27/2020 7:30 PM CUSTOMER SALES SPECIALIST Inhaled Oxygen Concentration - - Weight 59 kg (130 lb) 07/27/2020 3:39 PM CUSTOMER SALES SPECIALIST Height 170.2 cm (5' 7) 07/27/2020 3:39 PM CUSTOMER SALES SPECIALIST Body Mass Index 20.36 07/27/2020 3:39 PM CUSTOMER SALES SPECIALIST Plan of Treatment Health Maintenance Due Date [...] Mammogram Screening 2018 COVID-19 Vaccine ( - season) 2025 Meningococcal B Vaccine Aged Out No l onger eligible based on patient's age to complete this topic Meningococcal Vaccine Aged Out No mao asa eligible based on patient's age to complete this topic RSV Immunizations Under 20 Months Aged Out No longer eligible based on patient's age to complete this topic Insurance [address] [address] [place] Care Teams Retail Cashier Relationship Specialty Start Date End Date Bakari Charles MD [address] [place] [address] PCP - General FAMILY PRACTICE 03/27/19
--- OUTSIDE RECORDS SUMMARY | 2025-06-13 08:41 | XMS_ITS | Clinical Summary ---
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 Gender Identity Not on file Sexual Orientation Not on file Last Filed Vital Signs Vital Sign Reading Time Taken Comments Blood Pressure 92/60 08/29/2022 8:37 AM POWER PLANT OPERATOR Pulse 94 08/29/2022 8:37 AM POWER PLANT OPERATOR Temperature 36.8 C (98.2 F) 08/29/2022 8:37 AM POWER PLANT OPERATOR Respiratory Rate 20 08/29/2022 8:37 AM POWER PLANT OPERATOR Oxygen Saturation 98% 08/29/2022 8:37 AM POWER PLANT OPERATOR Inhaled Oxygen Concentration - - Weight - - Height 170.2 cm (5' 7) 08/29/2022 8:37 AM POWER PLANT OPERATOR Body Mass Index - - Plan of Treatment Health Maintenance Due Date Last Done Comments Hepatitis C Virus (HCV) Screening 1978 TdaP Immunization 1978 Hepatitis B Immunization (1 of 3 - 19+ 3-dose series) 1997 Pap Smear 1999 Cervical Cancer Screening (CCS) 2008 HPV/Cotest 2008 Cologuard 2023 Colonoscopy 2023 Colorectal Cancer Screening 2023 Immunochemical Fecal Occult Blood 2023 Influenza Immunization (#1) 2025 SARS-COV-2 Immunization ( season) 2025 03/08/2021, 02/08/2021 Respiratory Syncytial Virus (RSV) Immunization (Adult) (1 [...] topic Insurance MEDICARE C [employer] Care Teams Manager Drive Relationship Specialty Start Date End Date Bakari Charles MD [address] [place] [address] PCP - General Family Medicine 08/17/22 Racheal Mason III, MD [address] [place] [address] Consulting Physician Urology 10/02/23
--- OUTSIDE RECORDS SUMMARY | 2025-06-13 08:41 | XMS_ITS | Encounter Summary ---
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
[2025-06-13 09:01] LABS: Hematocrit 42.0 % (35.0-49.0); Hemoglobin 13.1 g/dL (12.0-15.0); Immature Granulocyte Percent A 0.4 % (0.0-0.0); Lymphocytes Absolute Auto 2.37 K/mm3 (1.10-4.50); Mean Corpuscular HGB Conc 31.2 g/dL (32-36); Mean Corpuscular Hemoglobin 29.2 pg (27.0-31.0); Mean Corpuscular Volume 93.8 fL (78.0-102.0); Nucleated Red Blood Cells Absolute Auto 0.00 K/mm3 (0.00-0.00); Nucleated Red Blood Cells Perc 0.0 % (0-0.0); Platelet Count Result 343 K/mm3 (150-420); Red Blood Count 4.48 M/mm3 (4.20-5.40); White Blood Count 11.0 K/mm3 (4.8-10.8)
[2025-06-13 09:02] LABS: Add Urine Microscopic? NO; Appearance Urine Clear (Clear); Glucose Urine UA Negative (Negative); Leukocyte Esterase Ur Negative LEU/UL (Negative); Nitrate Urine Negative (Negative); Specific Grav Ur 1.010 (1.010-1.020)
== END 2025-06-13 08:40 | disposition home or self-care (01) ==
LOC: CHSLAB 08:39
PROVIDERS: PCP Nurse Practitioner Family; Visit Provider Nurse Practitioner Family
DX: R10.9 Unspecified abdominal pain (principal); D72.829 Elevated white blood cell count, unspecified
CPT/HCPCS: 36415; 81003; 85025